=== PATIENT | male | born 1940 | race Two or more races ===

== ENCOUNTER 2018-06-12 11:45 | Emergency (ER) | payer MEDICARE, MEDICAID ==
[~2018-06-12] VITALS: Ht 160 cm; Wt 63.5 kg
[2018-06-12 16:10] VITALS: BP 106/70
== END 2018-06-12 16:20 | disposition home or self-care (01) ==
LOC: ER 11:45
DX: S60.450A Superficial foreign body of right index finger, initial encounter (principal); E78.5 Hyperlipidemia, unspecified; I10 Essential (primary) hypertension; W45.0XXA Nail entering through skin, initial encounter; Y93.89 Activity, other specified; Y99.8 Other external cause status; Y92.89 Other specified places as the place of occurrence of the external cause
CPT/HCPCS: 10120; 73130

== ENCOUNTER 2018-07-06 23:42 | Emergency (ER) | payer MEDICAID, MEDICARE ==
[~2018-07-06] VITALS: Ht 152.4 cm; Wt 68.0 kg
[2018-07-07 02:40] LABS: Basophils # (auto) 0 uL; Basophils % (auto) 0.7 % (0.0-2.0); Eosinophils # (auto) 0.2 uL; Eosinophils % (auto) 3.1 % (0.0-7.0); Hematocrit 40.1 % (41.0-53.0); Hemoglobin 13.1 g/dL (13.5-17.5); Lymphocytes # (auto) 1.1 uL; Lymphocytes % (auto) 19.4 % (10.0-50.0); Mean Corpuscular Hemoglobin 31.9 pg (28.0-32.0); Mean Corpuscular Hgb Conc. 32.7 g/dL (32.0-36.0); Mean Corpuscular Volume 97.5 fL (80.0-100.0); Monocytes # (auto) 0.5 uL; Monocytes % (auto) 8.4 % (0.0-12.0); Neutrophils # (auto) 3.7 uL; Neutrophils % (auto) 68.4 % (37.0-80.0); Nucleated Red Blood Cells % 0.2 %; Platelet Count (auto) 166 10^3/uL (140-450); Red Blood Cells 4.11 10^6/uL (4.5-5.90); Red Cell Distribution Width 14.9 % (11.8-14.3); White Blood Cell 5.4 10^3/uL (4.4-10.8)
[2018-07-07 02:55] LABS: Partial Thromboplastin Time 29.2 sec (23.78-33.04); Prothrombin Time 10.7 sec (9.27-12.13)
[2018-07-07 05:00] LABS: BUN/Creatinine Ratio 18.1; Calcium 8.2 mg/dL (8.5-10.1)
[2018-07-07] MEDS ORDERED: HYDROcodone-ACET 5/325MG TAB PO ONE (05:00)
[2018-07-07 07:47] VITALS: BP 154/76
== END 2018-07-07 07:59 | disposition home or self-care (01) ==
LOC: EDBD 23:42 → ER 23:52
DX: J32.9 Chronic sinusitis, unspecified (principal); E78.5 Hyperlipidemia, unspecified; I10 Essential (primary) hypertension
CPT/HCPCS: 36415; 70450; 80048; 83880; 85025; 85610; 85730

== ENCOUNTER 2019-04-17 19:31 | Emergency (ER) | payer MEDICARE, MEDICAID ==
[~2019-04-17] VITALS: Ht 157.5 cm; Wt 72.6 kg
[2019-04-17 21:21] LABS: Basophils # (auto) 0 uL; Basophils % (auto) 0.5 % (0.0-2.0); Eosinophils # (auto) 0.2 uL; Eosinophils % (auto) 3.6 % (0.0-7.0); Hematocrit 40.2 % (41.0-53.0); Hemoglobin 13.8 g/dL (13.5-17.5); Lymphocytes # (auto) 1.5 uL; Lymphocytes % (auto) 22.3 % (10.0-50.0); Mean Corpuscular Hgb Conc. 34.2 g/dL (32.0-36.0); Mean Corpuscular Volume 96.3 fL (80.0-100.0); Monocytes # (auto) 0.5 uL; Monocytes % (auto) 7.8 % (0.0-12.0); Neutrophils # (auto) 4.4 uL; Neutrophils % (auto) 65.8 % (37.0-80.0); Platelet Count (auto) 181 10^3/uL (140-450); Red Blood Cells 4.17 10^6/uL (4.5-5.90); Red Cell Distribution Width 14.1 % (11.8-14.3); White Blood Cell 6.7 10^3/uL (4.4-10.8)
[2019-04-17 21:34] LABS: INR 0.92 (0.9-1.15); Partial Thromboplastin Time 28.1 sec (23.64-32.05)
[2019-04-17 21:36] LABS: Alanine Aminotransferase 30 U/L (16-61); Albumin 3.7 g/dL (3.4-5.0); Anion Gap 8 (5-15); Aspartate Aminotransferase 14 U/L (15-37); Blood Urea Nitrogen 15 mg/dL (7-18); Calcium 8.8 mg/dL (8.5-10.1); Carbon Dioxide 26 mmol/L (21-32); Chloride 106 mmol/L (98-107); GFR African American 130 mL/min; GFR Non-African American 107 mL/min; Glucose 100 mg/dL (74-106); Potassium 4.1 mmol/L (3.5-5.1); Sodium 140 mmol/L (136-145)
[2019-04-17 21:41] LABS: Alkaline Phosphatase 75 U/L (45-117); Bilirubin, Total 0.4 mg/dL (0.2-1.0); Creatine Kinase IFCC 129 U/L (39-308); Total Protein 7.6 g/dL (6.4-8.2)
[2019-04-18] MEDS ORDERED: HYDROcodone-ACET 10/325MG TAB PO ONE (01:30)
[2019-04-18] MEDS ORDERED: LEVOFLOXACIN 250 MG TAB PO ONE (02:15)
[2019-04-18 04:25] VITALS: BP 165/86
== END 2019-04-18 05:18 | disposition home or self-care (01) ==
LOC: EDBD 19:31 → ER 19:31
DX: J01.90 Acute sinusitis, unspecified (principal); E78.5 Hyperlipidemia, unspecified; I10 Essential (primary) hypertension
CPT/HCPCS: 36415; 70450; 71045; 80053; 82550; 83880; 84484; 85025; 85610; 85730; 93005

== ENCOUNTER 2019-12-08 21:34 | Emergency (ER) | payer MEDICARE, MEDICAID | END 2019-12-08 22:03 | disposition left against medical advice (07) | LOC: ER 21:34 → EDBD 21:34 → ER 22:03 | DX: R69 Illness, unspecified (principal); Z53.21 Procedure and treatment not carried out due to patient leaving prior to being seen by health care provider ==

== ENCOUNTER 2021-10-16 20:33 | Inpatient (IN) | payer BC, MEDICAID ==
[~2021-10-16] VITALS: Ht 165.1 cm; Wt 65.6 kg
[2021-10-16 22:20] LABS: Basophils # (auto) 0 10 ^3/uL (0-0.2); Basophils % (auto) 0.1 % (0.0-2.0); Eosinophils # (auto) 0.1 10 ^3/uL (0-0.8); Eosinophils % (auto) 1.2 % (0.0-7.0); Hemoglobin 13.7 g/dL (13.5-17.5); Lymphocytes # (auto) 0.9 10 ^3/uL (0.4-5.4); Lymphocytes % (auto) 19.5 % (10.0-50.0); Mean Corpuscular Hemoglobin 31.5 pg (28.0-32.0); Mean Corpuscular Hgb Conc. 32.6 g/dL (32.0-36.0); Mean Corpuscular Volume 96.6 fL (80.0-100.0); Monocytes # (auto) 0.2 10 ^3/uL (0-1.3); Neutrophils # (auto) 3.5 10 ^3/uL (1.6-8.6); Neutrophils % (auto) 74.2 % (37.0-80.0); Nucleated Red Blood Cells % 0.1 %; Red Blood Cells 4.35 10^6/uL (4.5-5.90); White Blood Cell 4.7 10^3/uL (4.4-10.8)
[2021-10-16 22:35] LABS: Albumin 2.5 g/dL (3.4-5.0); Calcium 7.8 mg/dL (8.5-10.1); Potassium 4.2 mmol/L (3.5-5.1)
[2021-10-16 22:40] LABS: Bilirubin, Total 0.6 mg/dL (0.2-1.0); Total Protein 6.3 g/dL (6.4-8.2)
[2021-10-16] MEDS ORDERED: cefTRIAXone 1GM/50ML D5W 50 ML IV ONE (23:45)
[2021-10-16] MEDS ORDERED: AZITHROMYCIN 500MG/ 250ML 250 ML IV ONE (23:45)
[2021-10-17] MEDS ORDERED: ONDANSETRON HCL 4 MG/2 ML VIAL IV PRN (03:30)
[2021-10-17] MEDS ORDERED: ACETAMINOPHEN 500 MG TAB PO PRN (03:30)
[2021-10-17] MEDS ORDERED: ACETAMINOPHEN 325 MG TAB PO PRN (03:30)
[2021-10-17] MEDS ORDERED: DOCUSATE SOD 100 MG CAP PO PRN (03:30)
[2021-10-17] MEDS ORDERED: HYDROcodone-ACET 5/325MG TAB PO PRN (03:30)
[2021-10-17 04:09] VITALS: BP 124/82
[2021-10-17] MEDS ORDERED: MORPHINE SULFATE INJECTION 2 MG/ML SYRG IV PRN (05:30)
[2021-10-17] MEDS ORDERED: NITROGLYCERIN 0.4 MG SL TAB SL PRN (05:30)
[2021-10-17] MEDS: cefTRIAXone 1GM/50ML D5W 50 ML IV SCH (08:46)
[2021-10-17] MEDS ORDERED: FAMOTIDINE (10MG/ML) 2ML VL IV SCH (10:00)
[2021-10-17] MEDS: ALBUTEROL SULF HFA 90MCG INH 200DOSE IN PRN ×2 (10:01→22:41)
[2021-10-17] MEDS: BUDESONIDE (INHALATION) 180 MCG IH IN SCH ×2 (10:01→22:21)
[2021-10-17] MEDS: DexAMETHasone SOD PHOS 10MG/1ML VIAL INJ IV SCH (10:49)
[2021-10-17] MEDS: ZINC SULFATE 220mg CAP or TAB PO SCH (10:50)
[2021-10-17] MEDS: AZITHROMYCIN 500MG/ 250ML 250 ML IV SCH (10:50)
[2021-10-17] MEDS: ASCORBIC ACID 1,000 MG TAB PO SCH (10:50)
[2021-10-17] MEDS: MULTIPLE VITAMIN TAB PO SCH (10:50)
[2021-10-17] MEDS: ASPirin 81 mg TAB PO SCH (10:50)
[2021-10-17] MEDS: CHOLECALCIFEROL (VITD3) 2,000 UNIT CAP/TAB PO SCH (10:51)
[2021-10-17] MEDS: ENOXAPARIN SOD 40 MG/0.4 ML SYRINGE SC SCH (10:51)
[2021-10-17 17:00] VITALS: BP 152/86
[2021-10-17] MEDS: TAMSULOSIN HYDROCHLORIDE 0.4 MG CAP PO SCH (18:13)
[2021-10-17 22:00] VITALS: BP 131/87
[2021-10-18 03:33] VITALS: BP 133/68
[2021-10-18] MEDS ORDERED: HYDROcodone-ACET 5/325MG TAB PO PRN (03:45)
[2021-10-18] MEDS: BUDESONIDE (INHALATION) 180 MCG IH IN SCH ×2 (06:54→20:40)
[2021-10-18] MEDS: ALBUTEROL SULF HFA 90MCG INH 200DOSE IN PRN ×2 (06:54→20:55)
[2021-10-18 07:44] LABS: Basophils # (auto) 0 10 ^3/uL (0-0.2); Basophils % (auto) 0.1 % (0.0-2.0); Eosinophils # (auto) 0 10 ^3/uL (0-0.8); Eosinophils % (auto) 0.1 % (0.0-7.0); Hematocrit 39.8 % (41.0-53.0); Hemoglobin 13.7 g/dL (13.5-17.5); Lymphocytes # (auto) 0.8 10 ^3/uL (0.4-5.4); Lymphocytes % (auto) 12.2 % (10.0-50.0); Mean Corpuscular Hgb Conc. 34.6 g/dL (32.0-36.0); Mean Corpuscular Volume 95.5 fL (80.0-100.0); Monocytes # (auto) 0.2 10 ^3/uL (0-1.3); Monocytes % (auto) 3.5 % (0.0-12.0); Neutrophils # (auto) 5.6 10 ^3/uL (1.6-8.6); Neutrophils % (auto) 84.1 % (37.0-80.0); Nucleated Red Blood Cells % 0.1 %; Red Blood Cells 4.17 10^6/uL (4.5-5.90); White Blood Cell 6.6 10^3/uL (4.4-10.8)
[2021-10-18 08:08] LABS: Albumin 2.7 g/dL (3.4-5.0); Calcium 8.6 mg/dL (8.5-10.1); Potassium 4.3 mmol/L (3.5-5.1)
[2021-10-18 08:13] LABS: BUN/Creatinine Ratio 28.6; Bilirubin, Total 0.4 mg/dL (0.2-1.0); Total Protein 6.9 g/dL (6.4-8.2)
[2021-10-18] MEDS: ASPirin 81 mg TAB PO SCH (09:26)
[2021-10-18] MEDS: cefTRIAXone 1GM/50ML D5W 50 ML IV SCH (09:26)
[2021-10-18] MEDS: AZITHROMYCIN 500MG/ 250ML 250 ML IV SCH (09:26)
[2021-10-18] MEDS: DexAMETHasone SOD PHOS 10MG/1ML VIAL INJ IV SCH (09:26)
[2021-10-18] MEDS: ZINC SULFATE 220mg CAP or TAB PO SCH (09:27)
[2021-10-18] MEDS: ASCORBIC ACID 1,000 MG TAB PO SCH (09:27)
[2021-10-18] MEDS: ENOXAPARIN SOD 40 MG/0.4 ML SYRINGE SC SCH (09:27)
[2021-10-18] MEDS: MULTIPLE VITAMIN TAB PO SCH (09:27)
[2021-10-18] MEDS: CHOLECALCIFEROL (VITD3) 2,000 UNIT CAP/TAB PO SCH (09:27)
[2021-10-18] MEDS ORDERED: REMDESIVIR PER PHARMACY 0 ML IV SCH (11:00)
[2021-10-18] MEDS ORDERED: TAMS0.4C36 PO (12:08)
[2021-10-18] MEDS ORDERED: ATOR20TA50 PO (12:08)
[2021-10-18] MEDS ORDERED: FIN5T PO (12:08)
[2021-10-18] MEDS ORDERED: BENA-27 PO (12:08)
[2021-10-18] MEDS: LACTULOSE 20Gm/30ML SOLN PO SCH ×3 (12:09→23:59)
[2021-10-18 13:00] VITALS: BP 134/87
[2021-10-18] MEDS ORDERED: REMDESIVIR 200 MG in NS 210ml LOADING DOSE ADULT IV ONE (15:00)
[2021-10-18 17:00] VITALS: BP 134/76
[2021-10-18] MEDS: TAMSULOSIN HYDROCHLORIDE 0.4 MG CAP PO SCH (17:37)
[2021-10-18 22:00] VITALS: BP 145/76
[2021-10-19 05:00] VITALS: BP 143/83
[2021-10-19] MEDS: LACTULOSE 20Gm/30ML SOLN PO SCH ×3 (05:55→17:39)
[2021-10-19] MEDS: ALBUTEROL SULF HFA 90MCG INH 200DOSE IN PRN ×2 (06:15→22:00)
[2021-10-19] MEDS: BUDESONIDE (INHALATION) 180 MCG IH IN SCH ×2 (06:16→22:00)
[2021-10-19 07:12] LABS: Potassium 4.6 mmol/L (3.5-5.1)
[2021-10-19 07:19] LABS: Albumin 2.4 g/dL (3.4-5.0); BUN/Creatinine Ratio 32.8; Bilirubin, Total 0.3 mg/dL (0.2-1.0); Calcium 8.2 mg/dL (8.5-10.1)
[2021-10-19 08:16] VITALS: BP 120/67
[2021-10-19] MEDS: AZITHROMYCIN 500MG/ 250ML 250 ML IV SCH (08:25)
[2021-10-19] MEDS: cefTRIAXone 1GM/50ML D5W 50 ML IV SCH (08:25)
[2021-10-19] MEDS: DexAMETHasone SOD PHOS 10MG/1ML VIAL INJ IV SCH (08:25)
[2021-10-19] MEDS: ASCORBIC ACID 1,000 MG TAB PO SCH (08:26)
[2021-10-19] MEDS: MULTIPLE VITAMIN TAB PO SCH (08:26)
[2021-10-19] MEDS: CHOLECALCIFEROL (VITD3) 2,000 UNIT CAP/TAB PO SCH (08:26)
[2021-10-19] MEDS: ZINC SULFATE 220mg CAP or TAB PO SCH (08:26)
[2021-10-19] MEDS: ASPirin 81 mg TAB PO SCH (08:26)
[2021-10-19] MEDS: ENOXAPARIN SOD 40 MG/0.4 ML SYRINGE SC SCH (08:27)
[2021-10-19 12:00] VITALS: BP 149/79
[2021-10-19] MEDS ORDERED: REMDESIVIR 100mg 100 MG in SODIUM CHL 0.9% 230 ML IV SCH (15:00)
[2021-10-19 16:00] VITALS: BP 134/73
[2021-10-19 18:10] VITALS: BP 134/73
[2021-10-19] MEDS: TAMSULOSIN HYDROCHLORIDE 0.4 MG CAP PO SCH (18:12)
[2021-10-19 22:00] VITALS: BP 152/86
[2021-10-19] MEDS ORDERED: ATORVASTATIN 20 MG TAB PO SCH (22:00)
[2021-10-20] MEDS: LACTULOSE 20Gm/30ML SOLN PO SCH
[2021-10-20] MEDS ORDERED: FINASTERIDE 5 MG TAB PO SCH (10:00)
[2021-10-20] MEDS ORDERED: BENAZEPRIL HCL 10 MG TAB PO SCH (10:00)
== END 2021-10-20 00:45 | disposition left against medical advice (07) | DRG 177 ==
LOC: ER 20:33 → EDBD 20:33 → OVERFLOW 10-17 05:28 → WEST WING 10-17 16:53
PROVIDERS: ADMIT Nurse Practitioner Family; ATTEND Internal Medicine
PROC: XW033E5 Introduction of Remdesivir Anti-infective into Peripheral Vein, Percutaneous Approach, New Technology Group 5 (ICD-10-PCS; principal; 2021-10-18)
DX: U07.1 COVID-19 (principal); J12.82 Pneumonia due to coronavirus disease 2019; J96.01 Acute respiratory failure with hypoxia; E88.09 Other disorders of plasma-protein metabolism, not elsewhere classified; E78.5 Hyperlipidemia, unspecified; I10 Essential (primary) hypertension; E11.9 Type 2 diabetes mellitus without complications; Z53.29 Procedure and treatment not carried out because of patient's decision for other reasons
CPT/HCPCS: 36415; 71045; 80053; 83036; 83735; 85025; 85379; 87426; 94640; 96365; 96368; 96375; G0378; J0696; J1100; J3490

== ENCOUNTER 2021-10-20 11:10 | Inpatient (IN) | payer BC, MEDICAID ==
[~2021-10-20] VITALS: Ht 165.1 cm; Wt 77.1 kg
[~2021-10-20 11:10] MED LIST: ATOR20TA50 PO; BENA-27 PO; FIN5T PO; TAMS0.4C36 PO
[2021-10-20 11:30] VITALS: BP 137/74
[2021-10-20] MEDS ORDERED: methylPREDNISolone SOD SUCC 125 MG/2 ML VL IV ONE (11:45)
[2021-10-20 12:30] LABS: Basophils # (auto) 0 10 ^3/uL (0-0.2); Eosinophils # (auto) 0 10 ^3/uL (0-0.8); Eosinophils % (auto) 0.2 % (0.0-7.0); Hematocrit 38.6 % (41.0-53.0); Hemoglobin 12.8 g/dL (13.5-17.5); Lymphocytes # (auto) 0.8 10 ^3/uL (0.4-5.4); Lymphocytes % (auto) 11.1 % (10.0-50.0); Mean Corpuscular Hemoglobin 31.5 pg (28.0-32.0); Mean Corpuscular Hgb Conc. 33.2 g/dL (32.0-36.0); Mean Corpuscular Volume 94.9 fL (80.0-100.0); Monocytes # (auto) 0.3 10 ^3/uL (0-1.3); Monocytes % (auto) 4.4 % (0.0-12.0); Neutrophils # (auto) 6.4 10 ^3/uL (1.6-8.6); Neutrophils % (auto) 84.3 % (37.0-80.0); Nucleated Red Blood Cells % 0.1 %; Red Blood Cells 4.07 10^6/uL (4.5-5.90); Red Cell Distribution Width 13.8 % (11.8-14.3); White Blood Cell 7.6 10^3/uL (4.4-10.8)
[2021-10-20 12:46] LABS: Albumin 2.9 g/dL (3.4-5.0); Calcium 8.6 mg/dL (8.5-10.1); Potassium 3.6 mmol/L (3.5-5.1)
[2021-10-20 12:55] LABS: BUN/Creatinine Ratio 30.8; Bilirubin, Total 0.6 mg/dL (0.2-1.0); CRP High Sensitivity 2.75 mg/dL (< 0.3); Total Protein 7.2 g/dL (6.4-8.2)
[2021-10-20] MEDS ORDERED: ASCORBIC ACID 500 MG TAB PO ONE (14:00)
[2021-10-20] MEDS ORDERED: ZINC SULFATE 220mg CAP or TAB PO ONE (14:00)
[2021-10-20] MEDS ORDERED: CHOLECALCIFEROL (VITD3) 2,000 UNIT CAP/TAB PO ONE (14:00)
[2021-10-20] MEDS ORDERED: AZITHROMYCIN 500MG/ 250ML 250 ML IV ONE (14:00)
[2021-10-20] MEDS ORDERED: ACETAMINOPHEN 325 MG TAB PO PRN (18:15)
[2021-10-20] MEDS ORDERED: HYDROcodone-ACET 5/325MG TAB PO PRN (18:15)
[2021-10-20] MEDS ORDERED: NITROGLYCERIN 0.4 MG SL TAB SL PRN (18:15)
[2021-10-20] MEDS ORDERED: MORPHINE SULFATE INJECTION 2 MG/ML SYRG IV PRN (18:15)
[2021-10-20] MEDS ORDERED: PIPERACILLIN-TAZOB 3.375GM 100 ML IV SCH (22:00)
[2021-10-21] MEDS ORDERED: ENOXAPARIN SOD 40 MG/0.4 ML SYRINGE SC SCH (10:00)
== END 2021-10-20 21:00 | disposition left against medical advice (07) | DRG 177 ==
LOC: ER 11:10 → EDBD 11:10 → TELE 18:07
PROVIDERS: ADMIT Internal Medicine; ATTEND Internal Medicine
DX: U07.1 COVID-19 (principal); J96.00 Acute respiratory failure, unspecified whether with hypoxia or hypercapnia; I10 Essential (primary) hypertension; Z53.29 Procedure and treatment not carried out because of patient's decision for other reasons; Z85.46 Personal history of malignant neoplasm of prostate; Z87.891 Personal history of nicotine dependence; E78.5 Hyperlipidemia, unspecified
CPT/HCPCS: 36415; 71045; 80053; 82728; 85025; 85379; 86141; 87426; G0378

== ENCOUNTER 2023-05-23 08:17 | Emergency (ER) | payer BC, MEDICAID ==
[~2023-05-23] VITALS: Ht 160 cm; Wt 80.0 kg
[2023-05-23] MEDS ORDERED: SODIUM CHLORIDE 0.9% 1,000 ML IV ONE (08:30)
[2023-05-23] MEDS ORDERED: FLEET ENEMA(ADULT) 135 ML PR ONE (08:30)
[2023-05-23] MEDS ORDERED: DOCUSATE SOD 100 MG CAP PO ONE (08:30)
[2023-05-23] MEDS ORDERED: LABETALOL HCL 5 MG/ML 4ML SYRINGE IV ONE (08:30)
[2023-05-23 08:42] LABS: Basophils # (auto) 0 10 ^3/uL (0-0.2); Basophils % (auto) 0.5 % (0.0-2.0); Eosinophils # (auto) 0.2 10 ^3/uL (0-0.8); Eosinophils % (auto) 2.5 % (0.0-7.0); Hematocrit 43.2 % (41.0-53.0); Hemoglobin 14.2 g/dL (13.5-17.5); Lymphocytes # (auto) 2.3 10 ^3/uL (0.4-5.4); Lymphocytes % (auto) 36.7 % (10.0-50.0); Mean Corpuscular Hemoglobin 32.3 pg (28.0-32.0); Mean Corpuscular Hgb Conc. 32.9 g/dL (32.0-36.0); Mean Corpuscular Volume 98.1 fL (80.0-100.0); Monocytes # (auto) 0.3 10 ^3/uL (0-1.3); Monocytes % (auto) 5.4 % (0.0-12.0); Neutrophils # (auto) 3.4 10 ^3/uL (1.6-8.6); Neutrophils % (auto) 54.9 % (37.0-80.0); Nucleated Red Blood Cells % 0.1 %; Red Cell Distribution Width 14.4 % (11.8-14.3); White Blood Cell 6.1 10^3/uL (4.4-10.8)
[2023-05-23 09:07] LABS: Albumin 4.2 g/dL (3.4-5.0); Calcium 9.4 mg/dL (8.5-10.1); Potassium 3.7 mmol/L (3.5-5.1)
[2023-05-23 09:10] LABS: BUN/Creatinine Ratio 22.9 (10.0-20.0); Bilirubin, Total 0.4 mg/dL (0.2-1.0); Total Protein 8.2 g/dL (6.4-8.2)
[2023-05-23 09:54] LABS: Urine Bacteria NONE SEEN /hpf (None Seen); Urine Blood TRACE /uL (Negative); Urine Specific Gravity 1.013 (1.001-1.035); Urine WBC <1 /hpf (0 - 3)
[2023-05-23 10:51] VITALS: BP 134/68
== END 2023-05-23 10:53 | disposition home or self-care (01) ==
LOC: EDBD 08:17 → ER 08:17
DX: R10.84 Generalized abdominal pain (principal); R33.9 Retention of urine, unspecified; E78.5 Hyperlipidemia, unspecified; I10 Essential (primary) hypertension; Z87.891 Personal history of nicotine dependence
CPT/HCPCS: 36415; 51702; 74176; 80053; 81001; 84484; 85025; 87040; 93005

== ENCOUNTER 2023-07-10 16:15 | Emergency (ER) | payer BC, MEDICAID ==
[~2023-07-10] VITALS: Ht 165.1 cm; Wt 60.0 kg
[2023-07-10 17:42] VITALS: TEMP 98.3
[2023-07-10 17:44] VITALS: PULSE 74; RESP 17; O2SAT 96
[2023-07-10 19:22] LABS: Urine Bacteria NONE SEEN /hpf (None Seen); Urine Blood 1+ /uL (Negative); Urine Clarity CLOUDY (Clear); Urine Color Yellow (Yellow); Urine Mucus FEW (None Seen); Urine Protein, UAD 3+ (Negative); Urine Urobilinogen Normal (Negative); Urine WBC 33 /hpf (0 - 3)
[2023-07-10 19:24] LABS: Urine Specific Gravity > 1.035 (1.001-1.035)
[2023-07-10 19:34] LABS: Basophils # (auto) 0 10 ^3/uL (0-0.2); Basophils % (auto) 0.5 % (0.0-2.0); Eosinophils # (auto) 0.1 10 ^3/uL (0-0.8); Hematocrit 41.9 % (41.0-53.0); Hemoglobin 14.1 g/dL (13.5-17.5); Lymphocytes # (auto) 1.7 10 ^3/uL (0.4-5.4); Lymphocytes % (auto) 23.5 % (10.0-50.0); Mean Corpuscular Hemoglobin 32.7 pg (28.0-32.0); Mean Corpuscular Hgb Conc. 33.7 g/dL (32.0-36.0); Mean Corpuscular Volume 97.1 fL (80.0-100.0); Monocytes # (auto) 0.4 10 ^3/uL (0-1.3); Monocytes % (auto) 5.5 % (0.0-12.0); Neutrophils % (auto) 69.5 % (37.0-80.0); Red Blood Cells 4.32 10^6/uL (4.5-5.90); White Blood Cell 7.2 10^3/uL (4.4-10.8)
[2023-07-10 19:45] VITALS: PULSE 82; RESP 14; O2SAT 94
[2023-07-10 19:54] LABS: Alanine Aminotransferase 21 U/L (7-40); Albumin 4.7 g/dL (3.2-4.8); Alkaline Phosphatase 87 U/L (46-116); Anion Gap 4.5 (5-15); Aspartate Aminotransferase 15 U/L (13-40); BUN/Creatinine Ratio 15.7 (10.0-20.0); Bilirubin, Total 0.6 mg/dL (0.2-1.0); Blood Urea Nitrogen 14 mg/dL (9-23); Calcium 9.9 mg/dL (8.5-10.1); Carbon Dioxide 31.5 mmol/L (20-30); Chloride 104 mmol/L (98-107); Glucose 102 mg/dL (74-106); Potassium 4.3 mmol/L (3.5-5.1); Sodium 140 mmol/L (136-145); Total Protein 7.8 g/dL (5.7-8.2)
[2023-07-10] MEDS ORDERED: MAGNESIUM CITRATE SOLUTION 300 ML BTL PO ONE (23:00)
[2023-07-10] MEDS ORDERED: cefTRIAXone 1GM/50ML D5W 50 ML IV ONE (23:00)
[2023-07-10] MEDS ORDERED: POLYETHYLENE GLYCOL 17 GM PWDR PO ONE (23:45)
[2023-07-11] VITALS: BP 137/103; PULSE 91; RESP 16; O2SAT 96
[2023-07-11] MEDS ORDERED: CIPR-173 PO (00:14)
[2023-07-11] MEDS ORDERED: POLY335015 PO (00:41)
== END 2023-07-11 00:53 | disposition home or self-care (01) ==
LOC: ER 16:15 → EDBD 16:15 → ER 07-11 00:49
DX: K59.00 Constipation, unspecified (principal); N39.0 Urinary tract infection, site not specified; E78.5 Hyperlipidemia, unspecified; I10 Essential (primary) hypertension; Z87.891 Personal history of nicotine dependence
CPT/HCPCS: 36415; 71045; 74176; 80053; 81001; 85025; 93005; 96365; 99285; J0696

== ENCOUNTER 2023-10-26 09:39 | Emergency (ER) | payer BC, MEDICAID ==
[~2023-10-26] VITALS: Ht 160 cm; Wt 79.5 kg
[~2023-10-26 09:39] MED LIST changes: +CIPR-173 PO; +POLY335015 PO
[2023-10-26 10:52] LABS: Basophils # (auto) 0 10 ^3/uL (0-0.2); Basophils % (auto) 0.3 % (0.0-2.0); Eosinophils # (auto) 0.1 10 ^3/uL (0-0.8); Eosinophils % (auto) 1.6 % (0.0-7.0); Hematocrit 38.3 % (41.0-53.0); Hemoglobin 12.8 g/dL (13.5-17.5); Lymphocytes # (auto) 1.4 10 ^3/uL (0.4-5.4); Lymphocytes % (auto) 21.9 % (10.0-50.0); Mean Corpuscular Hemoglobin 32.7 pg (28.0-32.0); Mean Corpuscular Hgb Conc. 33.4 g/dL (32.0-36.0); Mean Corpuscular Volume 97.7 fL (80.0-100.0); Monocytes # (auto) 0.7 10 ^3/uL (0-1.3); Monocytes % (auto) 10.2 % (0.0-12.0); Neutrophils # (auto) 4.4 10 ^3/uL (1.6-8.6); Red Blood Cells 3.92 10^6/uL (4.5-5.90); Red Cell Distribution Width 13.9 % (11.8-14.3); White Blood Cell 6.6 10^3/uL (4.4-10.8)
[2023-10-26 11:06] LABS: Alanine Aminotransferase 22 U/L (7-40); Albumin 4.2 g/dL (3.2-4.8); Alkaline Phosphatase 79 U/L (46-116); Anion Gap 4 (5-15); Aspartate Aminotransferase 15 U/L (13-40); Blood Urea Nitrogen 20 mg/dL (9-23); Calcium 8.7 mg/dL (8.7-10.4); Carbon Dioxide 30 mmol/L (20-30); Chloride 104 mmol/L (98-107); Glucose 97 mg/dL (74-106); Magnesium 2.3 mg/dL (1.6-2.6); Potassium 4.5 mmol/L (3.5-5.1); Sodium 138 mmol/L (136-145)
[2023-10-26 11:07] LABS: Bilirubin, Total 0.3 mg/dL (0.2-1.0); Total Protein 6.5 g/dL (5.7-8.2)
[2023-10-26 13:30] LABS: Erythrocyte Sedimentation Rate 66 mm/hr (0-20)
[2023-10-26 14:00] VITALS: BP 152/76; PULSE 60; RESP 16; TEMP 98.6; O2SAT 98
[2023-10-26] MEDS ORDERED: PRED20TA2 PO (14:04)
[2023-10-26] MEDS ORDERED: predniSONE 20 MG TAB PO ONE (14:15)
== END 2023-10-26 14:08 | disposition home or self-care (01) ==
LOC: ER 09:39 → EDBD 09:39 → ER 14:08
DX: R51.9 Headache, unspecified (principal); M31.6 Other giant cell arteritis; I10 Essential (primary) hypertension; E78.5 Hyperlipidemia, unspecified; F17.210 Nicotine dependence, cigarettes, uncomplicated
CPT/HCPCS: 36415; 70450; 80053; 82962; 83735; 84484; 85025; 85652; 93005; 99284; J7512

== ENCOUNTER 2024-07-29 05:36 | Emergency (ER) | payer BC, MEDICAID ==
[~2024-07-29] VITALS: Ht 160 cm; Wt 59.0 kg
[~2024-07-29 05:36] MED LIST changes: -CIPR-173 PO; +NAP500T PO; -TAMS0.4C36 PO; +TAMS0.4C39 PO
[2024-07-29 05:47] VITALS: BP 177/98; PULSE 85; RESP 18; O2SAT 96
[2024-07-29] MEDS ORDERED: ACET-1080 PO (10:28)
[2024-07-29] MEDS ORDERED: CLIN1CAP70 PO (10:28)
== END 2024-07-29 07:25 | disposition left against medical advice (07) ==
LOC: ER 05:36 → EDBD 05:36 → ER 07:25
DX: K08.89 Other specified disorders of teeth and supporting structures (principal); R04.2 Hemoptysis; Z53.21 Procedure and treatment not carried out due to patient leaving prior to being seen by health care provider

== ENCOUNTER 2024-07-29 08:07 | Emergency (ER) | payer BC, MEDICAID ==
[~2024-07-29] VITALS: Ht 167.6 cm; Wt 60.0 kg
[2024-07-29 10:10] VITALS: BP 136/76; PULSE 60; RESP 16; TEMP 97.6; O2SAT 98
[2024-07-29] MEDS: cefTRIAXone SOD 1,000 MG VL IM ONE (10:24)
[2024-07-29] MEDS: ACETAMINOPHEN 500 MG TAB PO ONE (10:24)
[2024-07-29] MEDS ORDERED: ACET-1080 PO (10:28)
[2024-07-29] MEDS ORDERED: CLIN1CAP70 PO (10:28)
== END 2024-07-29 10:37 | disposition home or self-care (01) ==
LOC: ER 08:07
DX: K04.7 Periapical abscess without sinus (principal); R51.9 Headache, unspecified; I10 Essential (primary) hypertension; E78.5 Hyperlipidemia, unspecified; F17.210 Nicotine dependence, cigarettes, uncomplicated; Z79.899 Other long term (current) drug therapy
CPT/HCPCS: 70450; 96372; 99285; J0696

== ENCOUNTER 2024-11-01 15:18 | Inpatient (IN) | payer BC, MEDICAID ==
[~2024-11-01] VITALS: Ht 160 cm; Wt 64.0 kg
[~2024-11-01 15:18] MED LIST changes: +ACET-1080 PO; +CALA1SUS2 EX; +CETI-83 OR; +CLIN1CAP70 PO; +HYDR2.5L4 TOP
--- NOTE | 2024-11-01 16:18 | ED.PDOC ---
History of Present Illness(SKN HPI Comments A 84 YEAR OLD FEMALE PRESENTS TO THE ED WITH COMPLAINT OF RASH. PATIENT STATES HE HAS HAD A RASH ON HIS BILATERAL ARMS, EYELIDS, AND NECK FOR THE PAST 2 MONTHS WITH WORSENING SYMPTOMS OVER THE LAST 2 WEEKS. PATIENT REPORTS HE NOW HAS INCREASED REDNESS, ITCHING, AND MILD DRAINAGE TO THE AFFECTED AREAS. PATIENT IS CONCERNED HE NOW HAS AN INFECTION. PATIENT DENIES FEVER, CHILLS, SHORTNESS OF BREATH, CHEST PAIN, ABDOMINAL PAIN, NAUSEA, VOMITING, HEADACHE, OR OTHER COMPLAINTS. NO OTHER SYMPTOMS OR MODIFYING FACTORS AT THIS TIME. PATIENT IS ALERT, ORIENTED X 4, AND HAS STEADY GAIT. Chief Complaint: Rash Time Seen by MD: 15:45 Primary Care Provider: DR DONATO History of Present Illness: Nurses Notes, Medications, Allergies Allergies: Coded Allergies: NO KNOWN ALLERGIES (Unverified , 06/12/18) Home Meds Active Scripts Cetirizine Hcl (EQ ALLERGY RELIEF) 10 Mg Tab, 10 MG OR DAILYP PRN for 10 Days, #10 TAB 0 Refills Prov:YADIEL HOLGUIN NP 08/14/24 Calamine-Zinc Oxide (Calamine 8-8 %) 1 Radha Radha, 1 APPLIC EX QID for 14 Days, #1 BOTTLE 0 Refills Prov:YADIEL HOLGUIN NP 08/14/24 Hydrocortisone (Topical) (Hydrocortisone) 2.5 % Lot, 1 APPLIC TOP BID for 7 Days, #60 ML 1 Refill Prov:YADIEL HOLGUIN NP 08/14/24 Acetaminophen (Tylenol 8 Hour Arthritis) 650 Mg Tab, 650 MG PO TID, #30 TAB Prov:WARD HINTON 07/29/24 Clindamycin Hcl (Clindamycin Hcl) 300 Mg Cap, 1 CAP PO TID, #30 CAP Prov:WARD HINTON 07/29/24 Polyethylene Glycol 3350 (Miralax) 17 Gm Pow, 17 GM PO TID for 10 Days, #30 POW Prov:JERO MATT DO 07/11/23 Reported Medications Naproxen (NAPROSYN TABLET) 500 Mg Tb, 1 TAB PO BID 02/15/24 Benazepril & Hydrochlorothiazi (Benazepril Hydrochloride/ 20-12.5 mg) 1 Tab Tab, 1 TAB PO DAILYPRN 10/18/21 Atorvastatin Calcium (ATORVASTATIN CALCIUM) 20 Mg Tab, 1 TAB PO DAILYPRN 10/18/21 Finasteride (Finasteride) 5 Mg Tab, 1 TAB PO DAILYPRN 10/18/21 Tamsulosin Hcl (Tamsulosin Hcl) 0.4 Mg Cap, 1 CAP PO DAILYPRN 10/18/21 Information Source: Patient Mode of Arrival: Ambulatory Severity: Moderate Timing: Months Duration: Since onset Prehospital treatment: None Location: Arm, Chest, Eyes (EYELIDS), Neck Mechanism: Spontaneous Onset Developed: Pruritus, Rash Occurence: Indoors Object: None Condition of Object: None Retained Foreign Body: No Wound Type: None Immunization Status of Animal: NA Tetanus: Unknown History of: None Associated Signs and Symptoms: Redness, Swelling, Pus, Pain Past Medical History PAST MEDICAL HISTORY: High Lipids, HTN, UTI'S Surgical History: Denies all surgeries Family History Family History: Reviewed,noncontributory to illness Social History Smoker: Cigar Alcohol: Occasionally Drugs: Denies Drug Use Lives In: Home Constitutional: denies: chills, diaphoresis, fatigue, fever, malaise, sweats, weakness, others EENTM: denies: blurred vision, double vision, ear bleeding, ear discharge, ear drainage, ear pain, ear ringing, eye pain, eye redness, hearing loss, mouth pain, mouth swelling, nasal discharge, nose bleeding, nose congestion, nose pain, photophobia, tearing, throat pain, throat swelling, voice changes, others Respiratory: denies: cough, hemoptysis, orthopnea, SOB at rest, shortness of breath, SOB with excertion, stridor, wheezing, others Cardiovascular: denies: chest pain, dizzy spells, diaphoresis, Dyspnea on exertion, edema, irregular heart beat, left arm pain, lightheadedness, palpitations, PND, syncope, others Gastrointestinal: denies: abdomen distended, abdominal pain, blood streaked bowels, constipated, diarrhea, dysphagia, difficulty swallowing, hematemesis, melena, nausea, poor appetite, poor fluid intake, rectal bleeding, rectal pain, vomiting, others Genitourinary: denies: burning, dysuria, flank pain, frequency, hematuria, incontinence, penile discharge, penile sore, pain, testicle pain, testicle swelling, urgency, others Neurological: denies: dizziness, fainting, headache, left sided numbness, left sided weakness, numbness, paresthesia, pre-existing deficit, right sided numbness, right sided weakness, seizure, speech problems, tingling, tremors, weakness, others Musculoskeletal: denies: back pain, gout, joint pain, joint swelling, muscle pain, muscle stiffness, neck pain, others Integumetry: reports: lesions, rash, wounds, others (ITCHING, MILD DRAINAGE); denies: bruises, change in color, change in hair/nails, dryness, laceration, lumps Allergic/Immunocompromised: reports: Itching; denies: Difficulty Healing, Frequent Infections, Hives, others Hematologic/Lymphatic: denies: anemia, blood clots, easy bleeding, easy bruising, swollen glands, others Endocrine: denies: excessive hunger, excessive sweating, excessive thirst, excessive urination, flushing, intolerance to cold, intolerance to heat, unexplained weight gain, unexplained weight loss, others Psychiatric: denies: anxiety, bipolar disorder, depression, hopeless, panic disorder, schizophrenia, sleepless, suicidal, others All Other Systems: Reviewed and Negative Physical Exam General Appearance: No Apparent Distress, Normal HEENT: Eye Lid (L) (ECZEMATOUS SKIN RASH ON LEFT UPPER AND LOWER EYELIDS. . ), Eye Lid (R) (ECZEMATOUS SKIN RASH WITH REDNESS AND MILD SWELLING ON RIGHT UPPER AND LOWER EYELID. ), Normal ENT Inspection, PERRL/EOMI, Pharynx Normal, TMs Normal Neck: Full Range of Motion, Non-Tender, Normal, Normal Inspection Respiratory: Chest Non-Tender, Lungs Clear, No Accessory Muscle Use, No Respiratory Distress, Normal Breath Sounds Cardiovascular: No Edema, No JVD, No Murmur, No Gallop, Normal Peripheral Pulses, Regular Rate/Rhythm Breast Exam: Deferred Gastrointestinal: No Organomegaly, Non Tender, No Pulsatile Mass, Normal Bowel Sounds, Soft Genitalia: Deferred Pelvic: Deferred Rectal: Deferred Extremities: No calf tenderness, Normal capillary refill, Normal inspection, Normal range of motion, Non-tender, No pedal edema Musculoskeletal : Apperance: Normal Neurologic: Alert, manager of pharmacy II-XII nml as Tested, No Motor Deficits, Normal Affect, Normal Mood, No Sensory Deficits Cerebellar Function: Normal Reflexes: Normal Skin: Dry, Rash (ECZEMATOUS SKIN RASH ON BILATERAL LATERAL NECK, EXTERNAL EARS AND AROUND EYELIDS, NO OPEN WOUND AND PUS DRAINAGE. ), Warm, Wounds (ECZEMATOUS SKIN RASH WITH LOCALIZED REDNESS, SWELLING AND MILD YELLOW DRAINAGE ON BILATERAL WRISTS TO FOREARMS. ) Peripheral Pulses: 2+ carotid (R), 2+ carotid (L), 2+ Radial (R), 2+ Radial (L) Lymphatic: No Adenopathy Was a procedure done? Was a procedure done?: No Differential Diagnosis (INTG) Differential Diagnosis: Cellulitis, N/A Differential Diagnosis: Atopic dermatitis, Cellulitis, Contact Dermatitis, Erysipelas, Hidradenitis suppurativa, Impetigo, Intertrigo, Scabies, Tinea, Urticaria Differential Diagnosis: N/A Abscess: N/A Differential Diagnosis: N/A X-Ray, Labs, Meds, VS Vital Signs Date Time Temp Pulse Resp B/P (MAP) Pulse Ox O2 Delivery O2 Flow Rate FiO2 11/01/24 15:59 85 18 96 Room Air 11/01/24 15:59 98.2 85 18 153/84 (107) 96 98.2 11/01/24 15:49 98.2 85 18 153/84 (107) 96 Lab Test 11/01/24 16:37 Range/Units White Blood Count 5.0 4.4-10.8 10^3/uL Red Blood Count 4.24 L 4.5-5.90 10^6/uL Hemoglobin 14.0 13.5-17.5 g/dL Hematocrit 42.0 41.0-53.0 % Mean Corpuscular Volume 99.1 80.0-100.0 fL Mean Corpuscular Hemoglobin 33.1 H 28.0-32.0 pg Mean Corpuscular Hemoglobin Concent 33.4 32.0-36.0 g/dL Red Cell Distribution Width 13.5 11.8-14.3 % Platelet Count 199 140-450 10^3/uL Mean Platelet Volume 7.9 6.9-10.8 fL Neutrophils (%) (Auto) 71.0 37.0-80.0 % Lymphocytes (%) (Auto) 20.0 10.0-50.0 % Monocytes (%) (Auto) 5.7 0.0-12.0 % Eosinophils (%) (Auto) 2.7 0.0-7.0 % Basophils (%) (Auto) 0.6 0.0-2.0 % Neutrophils # (Auto) 3.5 1.6-8.6 10 ^3/uL Lymphocytes # (Auto) 1.0 0.4-5.4 10 ^3/uL Monocytes # (Auto) 0.3 0-1.3 10 ^3/uL Eosinophils # (Auto) 0.1 0-0.8 10 ^3/uL Basophils # (Auto) 0 0-0.2 10 ^3/uL Nucleated Red Blood Cells 0.3 % Sodium Level 141 136-145 mmol/L Potassium Level 4.3 3.5-5.1 mmol/L Chloride Level 106 98-107 mmol/L Carbon Dioxide Level 29 20-31 mmol/L Anion Gap 6 5-15 Blood Urea Nitrogen 20 9-23 mg/dL Creatinine 1.13 0.700-1.30 mg/dL Glomerular Filtration Rate Calc 64 >90 mL/min BUN/Creatinine Ratio 17.7 10.0-20.0 Serum Glucose 97 74-106 mg/dL Lactic Acid Level 1.6 0.4-2.0 mmol/L Calcium Level 10.0 8.7-10.4 mg/dL Current Medications Medications (Trade) Dose Ordered Sig/Pamela Route Start Time Stop Time Status Last Admin Sodium Chloride 1,000 ml @ 125 mls/hr Q8H ONCE IV 11/01/24 16:30 11/02/24 00:29 11/01/24 16:48 X-Ray, Labs, Meds, VS Comment EXTERNAL MEDICAL RECORDS REVIEWED: [NONE] INDEPENDENT HISTORIANS: [NONE] SOCIAL DETERMINANTS OF HEALTH: [NONE] LABS ORDERED: CBC, BMP, UA, LACTIC ACID W/REFLEX, BLOOD CULTURE, WOUND CULTURE REVIEWED AND INTERPRETED RESULTS: IMAGING ORDERED: NONE TREATMENTS ORDERED: ROCEPHIN 1 G IV, SOLUMDEROL 125MG IVP AND BENADRYL 25MG IVP PROCEDURES PERFORMED: NONE CRITICAL CARE TIME: NONE I HAVE DISCUSSED THE PATIENT WITH THE ATTENDING PHYSICIAN DR. COLE AND HE AGREES WITH THE PATIENT'S PLAN OF CARE. SHARED DECISION MAKING: I HAVE DISCUSSED WITH THE PATIENT THAT SINCE HIS ECZEMA FLARE HAS NOW BECOME A SECONDARY INFECTION AND THERE IS NO IMPROVEMENT IN HIS SYMPTOMS, HE WILL NEED TO BE ADMITTED FOR FURTHER TREATMENT AND EVALUATION. PATIENT AGREES WITH MY PLAN OF CARE. A 84 YEAR OLD MALE PRESENTED TO THE ED C/O RASH OF BILATERAL ARMS, NECK, AND EYELIDS FOR THE PAST 2 MONTHS WITH WORSENING SYMPTOMS FOR THE PAST 2 WEEKS. UPON MY PHYSICAL EXAMINATION, THE PATIENT HAD A DRY SCALY RASH WITH YELLOW PUS DRAINAGE WITH LOCALIZED REDNESS AND SWELLING NOTED TO HIS BILATERAL WRISTS, FOREARMS, AND NECK CONSISTENT WITH AN ECZEMA FLARE AND A SECONDARY SOFT TISSUE INFECTION. MY DIFFERENTIAL DIAGNOSIS INCLUDES, CELLULITIS, ATOPIC DERMATITIS, ECZEMA FLARE, ERYSIPELAS, PSORIASIS, SECONDARY SOFT TISSUE INFECTION. LABS WERE ORDERED FOR THE PATIENT AND THERE WERE NO ACUTE FINDINGS. DUE TO THE PATIENT'S CLINICAL EXAM FINDINGS BEING CONSISTENT WITH AN ECZEMA FLARE AND SECONDARY SOFT TISSUE INFECTION, I HAVE DETERMINED THE PATIENT SHOULD BE ADMITTED FOR FURTHER TREATMENT AND EVALUATION. THE ON-CALL ADMITTING PHYSICIAN WILL BE CONTACTED FOR ADMISSION OF THIS PATIENT. Time of 1ST Reevaluation: 17:45 Reevaluation 1ST: Unchanged Patient Education/Counseling: Diagnosis, Treatment Family Education/Counseling: Diagnosis, Treatment Departure 1 Departure Time of Disposition: 17:45 Impression: Primary Impression: Exacerbation of eczema Additional Impression: Cellulitis of multiple sites of hand and wrist Disposition: ADMITTED INPATIENT Admit to: Med Surg Condition: Serious Critical Care Note Critical Care Time?: No Stability Stability form required: Yes Unstable for transfer: Requires medication, ED Physician Assesment, Possible rapid decline Heart Score Heart Score: Heart Score Response (Comments) Value History N/A 0 EKG N/A 0 Age N/A 0 Risk Factors N/A 0 Troponin N/A 0 Total 0 I personally scribed for WARD HINTON ([email or web address]) on 11/01/24 at 16:18. Electronically submitted by Domo Dinh ([employer]). I personally scribed for WARD HINTON ([email or web address]) on 11/01/24 at 16:57. Electronically submitted by Domo Dinh ([employer]). I personally scribed for WARD HINTON ([email or web address]) on 11/01/24 at 17:41. Electronically submitted by Domo Dinh ([employer]). WARD HINTON Nov 01, 2024 16:18
[2024-11-01] MEDS: SODIUM CHLORIDE 0.9% 1,000 ML IV ONE (16:48)
[2024-11-01 17:03] LABS: Chloride 106 mmol/L (98-107); Potassium 4.3 mmol/L (3.5-5.1); Sodium 141 mmol/L (136-145)
[2024-11-01 17:04] LABS: Anion Gap 6 (5-15); Carbon Dioxide 29 mmol/L (20-31)
[2024-11-01 17:09] LABS: BUN/Creatinine Ratio 17.7 (10.0-20.0); Blood Urea Nitrogen 20 mg/dL (9-23); Glucose 97 mg/dL (74-106)
[2024-11-01 17:13] LABS: Basophils # (auto) 0 10 ^3/uL (0-0.2); Basophils % (auto) 0.6 % (0.0-2.0); Eosinophils # (auto) 0.1 10 ^3/uL (0-0.8); Eosinophils % (auto) 2.7 % (0.0-7.0); Mean Corpuscular Hemoglobin 33.1 pg (28.0-32.0); Mean Corpuscular Hgb Conc. 33.4 g/dL (32.0-36.0); Mean Corpuscular Volume 99.1 fL (80.0-100.0); Monocytes # (auto) 0.3 10 ^3/uL (0-1.3); Monocytes % (auto) 5.7 % (0.0-12.0); Neutrophils # (auto) 3.5 10 ^3/uL (1.6-8.6); Nucleated Red Blood Cells % 0.3 %; Platelet Count (auto) 199 10^3/uL (140-450); Red Blood Cells 4.24 10^6/uL (4.5-5.90); Red Cell Distribution Width 13.5 % (11.8-14.3)
[2024-11-01] MEDS: SODIUM CHLORIDE 0.9% 500 ML IV ONE (18:03)
[2024-11-01] MEDS: cefTRIAXone 1GM/50ML D5W 50 ML IV ONE (18:14)
[2024-11-01] MEDS: methylPREDNISolone SOD SUCC 125 MG/2 ML VL IV ONE (18:14)
[2024-11-01] MEDS: diphenhdrAMINE HCL 50 MG/1 ML VL IV ONE (18:14)
[2024-11-01] MEDS ORDERED: HYDROcodone-ACET 5/325MG TAB PO PRN (19:30)
[2024-11-01] MEDS ORDERED: ONDANSETRON HCL 4 MG/2 ML VIAL IV PRN (19:30)
[2024-11-01] MEDS ORDERED: diphenhdrAMINE HCL 25 MG CAP PO PRN (19:30)
[2024-11-01 20:33] LABS: Hematocrit 40.1 % (41.0-53.0); Hemoglobin 13.4 g/dL (13.5-17.5)
[2024-11-01] MEDS: CLINDAMYCIN 600MG IV 50 ML IV SCH (22:00)
[2024-11-01] MEDS: ATORVASTATIN 20 MG TAB PO SCH (22:00)
[2024-11-01 23:28] VITALS: BP 160/67; PULSE 61; PULSE 71; RESP 17; RESP 18; TEMP 98.3; O2SAT 94
[2024-11-02] VITALS (7 sets, daily range): BP systolic 108–148; BP diastolic 59–80; PULSE 63–82; RESP 12–20; TEMP 97.7–98.8; O2SAT 95–100
[2024-11-02 01:09] LABS: Urine Bacteria FEW /hpf (None Seen); Urine Blood Negative /uL (Negative); Urine Clarity Clear (Clear); Urine Color Light-Yellow (Yellow); Urine Mucus FEW (None Seen); Urine Protein, UAD Negative (Negative); Urine Specific Gravity 1.019 (1.001-1.035); Urine Urobilinogen Normal (Negative); Urine WBC 1 /hpf (0 - 3); Urine pH 5.5 (5.0-9.0)
--- NOTE | 2024-11-02 05:04 | DVHHP2 ---
History of Present Illness Reason for Visit: Rash History of Present Illness 84-year-old male presents for evaluation of a rash. The patient reports having a rash to bilateral forearms and face/neck for the past two months. He states that over the past two weeks it has progressively worsened. States worsening redness with itching and mild drainage from the affected areas. Denies fever or chills. No other acute complaints reported. Past Medical History Hypertension and dyslipidemia Past Surgical History Denies Family History Noncontributory Smoke: <1 pack per day ALCOHOL: occassional Drugs: None Lives: with Family Review of Systems Review of Systems Review of systems are currently negative otherwise dressing HPI. Allergies: Coded Allergies: NO KNOWN ALLERGIES (Unverified , 06/12/18) Medications Current Medications Medications Dose Ordered Sig/Pamela Route Start Time Stop Time Status Last Admin Dose Admin Ceftriaxone Sodium 50 ml @ 100 mls/hr DAILY@09 IV 11/02/24 09:00 Clindamycin Phosphate 50 ml @ 50 mls/hr Q8HR IV 11/01/24 22:00 11/01/24 22:00 50 MLS/HR Diphenhydramine HCl 25 mg Q6HP PRN PO 11/01/24 19:30 Tamsulosin HCl 0.4 mg QPM PO 11/02/24 18:00 Benazepril HCl 20 mg DAILY PO 11/02/24 10:00 Hydrochlorothiazide 12.5 mg DAILY PO 11/02/24 10:00 Atorvastatin Calcium 20 mg HS PO 11/01/24 22:00 11/01/24 22:00 20 MG Acetaminophen/ Hydrocodone Bitart 1 tab Q4HP PRN PO 11/01/24 19:30 Ondansetron HCl 4 mg Q4HP PRN IV 11/01/24 19:30 Acetaminophen 650 mg Q6HP PRN PO 11/01/24 19:30 Exam Vital Signs Vital Signs Date Time Temp Pulse Resp B/P (MAP) Pulse Ox O2 Delivery O2 Flow Rate FiO2 11/02/24 01:00 98.0 63 18 108/69 (82) 95 98.0 11/01/24 23:28 Room Air* 0 21 Exam Gen: 84-year-old male in mild distress Skin: Warm, dry, normal color and texture, facial rash, bilateral forearm redness HEENT: Normocephalic atraumatic, mucous membranes moist and pink. Neck: Cervical and supraclavicular nodes normal without enlargement, trachea is midline, thyroid gland is normal without masses. Pulmonary: Clear to auscultation and percussion bilaterally. Cardiac: Regular rate and rhythm. No murmur Abdomen: Soft, nontender, nondistended, bowel sounds present all 4 quadrants, no guarding, no rigidity, no organomegaly. Extremities: No cyanosis, clubbing, no edema Neuro: Cranial nerves II through XII grossly intact, normal affect and speech, no focal motor deficits. Labs/Xrays Labs Test 11/02/24 00:40 11/01/24 19:56 11/01/24 16:37 Range/Units Urine Color Light-yellow Yellow Urine Clarity Clear Clear Urine pH 5.5 5.0-9.0 Urine Specific [place] 1.019 1.001-1.035 Urine Protein Negative Negative Urine Ketones 1+ H Negative Urine Blood Negative Negative /uL Urine Nitrite Negative Negative Urine Bilirubin Negative Negative Urine Urobilinogen Normal Negative mg/dL Urine Leukocyte Esterase Negative Negative /uL Urine RBC <1 0 - 3 /hpf Urine WBC 1 0 - 3 /hpf Urine Squamous Epithelial Cells Few <5 /hpf Urine Bacteria Few H None Seen /hpf Urine Mucus Few None Seen Urine Glucose Normal Normal mg/dL Hemoglobin 13.4 L 13.5-17.5 g/dL Hematocrit 40.1 L 41.0-53.0 % White Blood Count 5.0 4.4-10.8 10^3/uL Red Blood Count 4.24 L 4.5-5.90 10^6/uL Mean Corpuscular Volume 99.1 80.0-100.0 fL Mean Corpuscular Hemoglobin 33.1 H 28.0-32.0 pg Mean Corpuscular Hemoglobin Concent 33.4 32.0-36.0 g/dL Red Cell Distribution Width 13.5 11.8-14.3 % Platelet Count 199 140-450 10^3/uL Mean Platelet Volume 7.9 6.9-10.8 fL Neutrophils (%) (Auto) 71.0 37.0-80.0 % Lymphocytes (%) (Auto) 20.0 10.0-50.0 % Monocytes (%) (Auto) 5.7 0.0-12.0 % Eosinophils (%) (Auto) 2.7 0.0-7.0 % Basophils (%) (Auto) 0.6 0.0-2.0 % Neutrophils # (Auto) 3.5 1.6-8.6 10 ^3/uL Lymphocytes # (Auto) 1.0 0.4-5.4 10 ^3/uL Monocytes # (Auto) 0.3 0-1.3 10 ^3/uL Eosinophils # (Auto) 0.1 0-0.8 10 ^3/uL Basophils # (Auto) 0 0-0.2 10 ^3/uL Nucleated Red Blood Cells 0.3 % Sodium Level 141 136-145 mmol/L Potassium Level 4.3 3.5-5.1 mmol/L Chloride Level 106 98-107 mmol/L Carbon Dioxide Level 29 20-31 mmol/L Anion Gap 6 5-15 Blood Urea Nitrogen 20 9-23 mg/dL Creatinine 1.13 0.700-1.30 mg/dL Glomerular Filtration Rate Calc 64 >90 mL/min BUN/Creatinine Ratio 17.7 10.0-20.0 Serum Glucose 97 74-106 mg/dL Lactic Acid Level 1.6 0.4-2.0 mmol/L Calcium Level 10.0 8.7-10.4 mg/dL Assessment/Plan Assessment/Plan Assessment Cellulitis of multiple sites Possible eczema Hypertension Plan Admit the patient to Med [facility] to the hospitalist Rocephin/clindamycin Resume home medications Continue treatment per orders. Plan discussed with: Patient My Orders Orders - HOMER MANCILLA AGACNP Procedure Category Date Status Time Ceftriaxone 1gm/50ml PHA 11/02/24 In Process D5w (Rocephin) 09:00 Clindamycin 600mg Iv PHA 11/01/24 In Process (Cleocin Iv) 22:00 Diphenhdramine PHA 11/01/24 In Process Capsule (Benadryl 19:30 Tamsulosin PHA 11/02/24 In Process Hydrochloride (Flomax) 18:00 Benazepril Hcl Tablet PHA 11/02/24 In Process (Lotensin Tablet) 10:00 Hydrochlorothiazide PHA 11/02/24 In Process Tablet (Hydrochlorot 10:00 Atorvastatin (Lipitor) PHA 11/01/24 In Process 22:00 Admit ADMIT 11/01/24 Transmitted 19:24 Hydrocodone-Acet PHA 11/01/24 In Process 5/325mg Tab ([place] 19:30 Ondansetron Hcl PHA 11/01/24 In Process (Zofran) 19:30 Cardiac DIET 11/02/24 Transmitted Diet-2gna,Lofat,Lochol Breakfast Condition: Stable SONY 11/01/24 In Process 19:24 Acetaminophen Tablet PHA 11/01/24 In Process (Tylenol Tablet) 19:30 Bedrest With Bathroom SONY 11/01/24 In Process Privileg 19:24 Date of Service: Nov 01, 2024 Billing Provider: HOMER MANCILLA Common Visit Codes: [id number] INP/OBS CARE (MOD) HOMER MANCILLA Nov 02, 2024 05:04
[2024-11-02] MEDS: hydroCHLOROthiazide 25 MG TAB PO SCH (10:39)
[2024-11-02] MEDS: BENAZEPRIL HCL 10 MG TAB PO SCH (10:40)
[2024-11-02] MEDS: cefTRIAXone 1GM/50ML D5W 50 ML IV SCH (10:44)
--- NOTE | 2024-11-02 13:38 | DVHPN2 ---
Reviewed: Care Plan, H&P, Labs, Medications, Previous Orders, Radiology Changes from previous H/P or p: No Changes Objective Vitals Vital Signs Date Time Temp Pulse Resp B/P (MAP) Pulse Ox O2 Delivery O2 Flow Rate FiO2 11/02/24 10:40 142/78 11/02/24 09:00 97.7 67 12 98 97.7 11/02/24 08:05 Room Air* 0 21 Intake/Output Intake and Output 11/02/24 07:00 Intake Total 800 ml Output Total 300 ml Balance 500 ml Intake Oral 150 ml IV Total 650 ml Output Urine Total 300 ml Medications Current Medications Medications Dose Ordered Sig/Pamela Route Start Time Stop Time Status Last Admin Dose Admin Ceftriaxone Sodium 50 ml @ 100 mls/hr DAILY@09 IV 11/02/24 09:00 11/02/24 10:44 100 MLS/HR Clindamycin Phosphate 50 ml @ 50 mls/hr Q8HR IV 11/01/24 22:00 11/02/24 13:11 50 MLS/HR Diphenhydramine HCl 25 mg Q6HP PRN PO 11/01/24 19:30 Tamsulosin HCl 0.4 mg QPM PO 11/02/24 18:00 Benazepril HCl 20 mg DAILY PO 11/02/24 10:00 11/02/24 10:40 20 MG Hydrochlorothiazide 12.5 mg DAILY PO 11/02/24 10:00 11/02/24 10:39 12.5 MG Atorvastatin Calcium 20 mg HS PO 11/01/24 22:00 11/01/24 22:00 20 MG Acetaminophen/ Hydrocodone Bitart 1 tab Q4HP PRN PO 11/01/24 19:30 Ondansetron HCl 4 mg Q4HP PRN IV 11/01/24 19:30 Acetaminophen 650 mg Q6HP PRN PO 11/01/24 19:30 Calamine 1 applic QIDP PRN TOP 11/02/24 05:00 Laboratory Results Laboratory Tests 11/01/24 16:37 11/01/24 19:56 Chemistry Test 11/01/24 16:37 Calcium Level 10.0 mg/dL (8.7-10.4) Urinalysis Test 11/02/24 00:40 Urine Color Light-yellow (Yellow) Urine Clarity Clear (Clear) Urine pH 5.5 (5.0-9.0) Urine Specific [place] 1.019 (1.001-1.035) Urine Protein Negative (Negative) Urine Ketones 1+ (Negative) H Urine Blood Negative /uL (Negative) Urine Nitrite Negative (Negative) Urine Bilirubin Negative (Negative) Urine Urobilinogen Normal mg/dL (Negative) Urine Leukocyte Esterase Negative /uL (Negative) Urine RBC <1 /hpf (0 - 3) Urine WBC 1 /hpf (0 - 3) Urine Squamous Epithelial Cells Few /hpf (<5) Urine Bacteria Few /hpf (None Seen) H Urine Mucus Few (None Seen) Urine Glucose Normal mg/dL (Normal) Microbiology Microbiology Date/Time Source Procedure Growth Status 11/01/24 20:00 Wrist Gram Stain Pending Resulted 11/01/24 20:00 Wrist Wound Culture - Preliminary Resulted 11/01/24 16:37 Blood Blood Culture - Preliminary Resulted Labs and/or images reviewed: Labs reviewed by me, Image(s) reviewed by me Assessment/Plan Assessment/Plan Cellulitis bilateral upper extremities: Rocephin clindamycin Bacteremia with cocci, continue clindamycin until final result Wound infection with staphylococci Hypotension Hypercholesterolemia Time spent 40 minutes Plan discussed with: Patient Date of Service: Nov 02, 2024 Billing Provider: BHUPINDER VEGA MD Common Visit Codes: [id number] INP/OBS CARE(HIGH) BHUPINDER VEGA MD Nov 02, 2024 13:38
[2024-11-02] MEDS: TAMSULOSIN HYDROCHLORIDE 0.4 MG CAP PO SCH (17:22)
[2024-11-02] MEDS: ACETAMINOPHEN 325 MG TAB PO PRN (21:05)
[2024-11-03 05:00] VITALS: BP 128/68; PULSE 60; RESP 18; TEMP 98.2; O2SAT 96
[2024-11-03 09:11] VITALS: BP 120/75; PULSE 53; RESP 15; TEMP 98.3; O2SAT 99
[2024-11-03] MEDS ORDERED: VANCOMYCIN PER PHARMACY 0 MG IV SCH (11:15)
[2024-11-03] MEDS: CALAMINE TOPical LOTION180 ML TOP PRN (11:16)
--- NOTE | 2024-11-03 11:16 | DVHPN2 ---
Reviewed: Care Plan, H&P, Labs, Medications, Previous Orders, Radiology Changes from previous H/P or p: No Changes Objective Vitals Vital Signs Date Time Temp Pulse Resp B/P (MAP) Pulse Ox O2 Delivery O2 Flow Rate FiO2 11/03/24 09:49 120/85 11/03/24 09:11 98.3 53 15 99 98.3 11/03/24 07:50 Room Air* 0 21 Intake/Output Intake and Output 11/03/24 07:00 Intake Total 1854 ml Output Total 550 ml Balance 1304 ml Intake Oral 1654 ml IV Total 200 ml Output Urine Total 550 ml # Voids 3 # Bowel Movements 1 Medications Current Medications Medications Dose Ordered Sig/Pamela Route Start Time Stop Time Status Last Admin Dose Admin Ceftriaxone Sodium 50 ml @ 100 mls/hr DAILY@09 IV 11/02/24 09:00 11/03/24 09:49 100 MLS/HR Clindamycin Phosphate 50 ml @ 50 mls/hr Q8HR IV 11/01/24 22:00 11/03/24 05:21 50 MLS/HR Diphenhydramine HCl 25 mg Q6HP PRN PO 11/01/24 19:30 Tamsulosin HCl 0.4 mg QPM PO 11/02/24 18:00 11/02/24 17:22 0.4 MG Benazepril HCl 20 mg DAILY PO 11/02/24 10:00 11/03/24 09:49 20 MG Hydrochlorothiazide 12.5 mg DAILY PO 11/02/24 10:00 11/03/24 09:49 12.5 MG Atorvastatin Calcium 20 mg HS PO 11/01/24 22:00 11/02/24 21:00 20 MG Acetaminophen/ Hydrocodone Bitart 1 tab Q4HP PRN PO 11/01/24 19:30 Ondansetron HCl 4 mg Q4HP PRN IV 11/01/24 19:30 Acetaminophen 650 mg Q6HP PRN PO 11/01/24 19:30 11/02/24 21:05 650 MG Calamine 1 applic QIDP PRN TOP 11/02/24 05:00 Laboratory Results Laboratory Tests 11/01/24 16:37 11/01/24 19:56 Urinalysis Test 11/02/24 00:40 Urine Color Light-yellow (Yellow) Urine Clarity Clear (Clear) Urine pH 5.5 (5.0-9.0) Urine Specific [place] 1.019 (1.001-1.035) Urine Protein Negative (Negative) Urine Ketones 1+ (Negative) H Urine Blood Negative /uL (Negative) Urine Nitrite Negative (Negative) Urine Bilirubin Negative (Negative) Urine Urobilinogen Normal mg/dL (Negative) Urine Leukocyte Esterase Negative /uL (Negative) Urine RBC <1 /hpf (0 - 3) Urine WBC 1 /hpf (0 - 3) Urine Squamous Epithelial Cells Few /hpf (<5) Urine Bacteria Few /hpf (None Seen) H Urine Mucus Few (None Seen) Urine Glucose Normal mg/dL (Normal) Microbiology Microbiology Date/Time Source Procedure Growth Status 11/01/24 20:00 Wrist Gram Stain Pending Resulted 11/01/24 20:00 Wound Culture - Final Methicillin Resistant S.aureus Resulted 11/01/24 16:37 Blood Blood Culture - Preliminary NO GROWTH AFTER 24 HOURS OF INCUBATION. Resulted Labs and/or images reviewed: Labs reviewed by me Assessment/Plan Assessment/Plan Cellulitis bilateral upper extremities: Rocephin clindamycin Chronic eczema bilateral upper extremities MRSA bacteremia DC Rocephin clindamycin, start vancomycin Wound infection with MRSA Hypotension Hypercholesterolemia Time spent 40 minutes Plan discussed with: Patient Date of Service: Nov 03, 2024 Billing Provider: BHUPINDER VEGA MD Common Visit Codes: [id number] INP/OBS CARE(HIGH) BHUPINDER VEGA MD Nov 03, 2024 11:16
[2024-11-03] MEDS: VANCOMYCIN 1GM/250ML KIT 250 ML IV ONE (12:04)
[2024-11-03 12:33] VITALS: BP 155/65; PULSE 50; RESP 17; TEMP 98.1; O2SAT 100
[2024-11-03 12:50] VITALS: BP 151/95; PULSE 66; RESP 18; TEMP 97.8; O2SAT 92
[2024-11-03] MEDS: methylPREDNISolone SOD SUCC 125 MG/2 ML VL IV ONE (13:08)
[2024-11-03] MEDS: diphenhdrAMINE HCL 50 MG/1 ML VL IV ONE (13:08)
[2024-11-03 16:41] VITALS: BP 152/57; PULSE 60; RESP 17; TEMP 98.1; O2SAT 95
[2024-11-03 21:00] VITALS: BP 134/74; PULSE 65; RESP 18; TEMP 98.8; O2SAT 96
[2024-11-03 21:37] LABS: Amphetamine Screen, Urine Pos (NEGATIVE); Barbiturate Scree,Urine Neg (NEGATIVE); Benzodiazephine Screen, Urine Neg (NEGATIVE); Cannabinoid Screen, Urine Neg (NEGATIVE); Cocaine Screen, Urine Neg (NEGATIVE); Opiate Scree,Urine Neg (NEGATIVE); Phencyclidine Screen, Urine Neg (NEGATIVE)
[2024-11-03] MEDS: CLINDAMYCIN 300MG IV 50 ML IV SCH (22:15)
[2024-11-04 01:00] VITALS: BP 136/76; PULSE 65; RESP 20; TEMP 98.4; O2SAT 99
[2024-11-04 05:00] VITALS: BP 140/78; PULSE 68; RESP 18; TEMP 98.2; O2SAT 97
[2024-11-04 08:00] VITALS: RESP 18
[2024-11-04 08:50] VITALS: BP 148/63; PULSE 62; RESP 17; TEMP 97.6; O2SAT 92
--- NOTE | 2024-11-04 09:14 | DVHPN2 ---
Reviewed: Care Plan, H&P, Labs, Medications, Previous Orders, Radiology Changes from previous H/P or p: No Changes Objective Vitals Vital Signs Date Time Temp Pulse Resp B/P (MAP) Pulse Ox O2 Delivery O2 Flow Rate FiO2 11/04/24 08:57 148/63 11/04/24 08:50 97.6 62 17 92 97.6 11/03/24 20:00 Room Air* 0 21 Intake/Output Intake and Output 11/04/24 07:00 Intake Total 1250 ml Balance 1250 ml Intake Oral 1200 ml IV Total 50 ml # Voids 7 # Bowel Movements 1 Medications Current Medications Medications Dose Ordered Sig/Pamela Route Start Time Stop Time Status Last Admin Dose Admin Diphenhydramine HCl 25 mg Q6HP PRN PO 11/01/24 19:30 Tamsulosin HCl 0.4 mg QPM PO 11/02/24 18:00 11/03/24 17:48 0.4 MG Benazepril HCl 20 mg DAILY PO 11/02/24 10:00 11/04/24 08:57 20 MG Hydrochlorothiazide 12.5 mg DAILY PO 11/02/24 10:00 11/04/24 08:57 12.5 MG Atorvastatin Calcium 20 mg HS PO 11/01/24 22:00 11/03/24 22:15 20 MG Acetaminophen/ Hydrocodone Bitart 1 tab Q4HP PRN PO 11/01/24 19:30 Ondansetron HCl 4 mg Q4HP PRN IV 11/01/24 19:30 Acetaminophen 650 mg Q6HP PRN PO 11/01/24 19:30 11/02/24 21:05 650 MG Calamine 1 applic QIDP PRN TOP 11/02/24 05:00 11/03/24 11:16 1 APPLIC Clindamycin Phosphate 50 ml @ 50 mls/hr Q8HR IV 11/03/24 22:00 11/04/24 05:43 50 MLS/HR Laboratory Results Laboratory Tests 11/01/24 16:37 11/01/24 19:56 Urinalysis Test 11/02/24 00:40 Urine Color Light-yellow (Yellow) Urine Clarity Clear (Clear) Urine pH 5.5 (5.0-9.0) Urine Specific [place] 1.019 (1.001-1.035) Urine Protein Negative (Negative) Urine Ketones 1+ (Negative) H Urine Blood Negative /uL (Negative) Urine Nitrite Negative (Negative) Urine Bilirubin Negative (Negative) Urine Urobilinogen Normal mg/dL (Negative) Urine Leukocyte Esterase Negative /uL (Negative) Urine RBC <1 /hpf (0 - 3) Urine WBC 1 /hpf (0 - 3) Urine Squamous Epithelial Cells Few /hpf (<5) Urine Bacteria Few /hpf (None Seen) H Urine Mucus Few (None Seen) Urine Glucose Normal mg/dL (Normal) Microbiology Microbiology Date/Time Source Procedure Growth Status 11/01/24 20:00 Wrist Gram Stain - Final Complete 11/01/24 20:00 Wound Culture - Final Methicillin Resistant S.aureus Complete 11/01/24 16:37 Blood Blood Culture - Preliminary NO GROWTH AFTER 48 HOURS OF INCUBATION. Resulted Labs and/or images reviewed: Labs reviewed by me, Image(s) reviewed by me Assessment/Plan Assessment/Plan Cellulitis bilateral upper extremities: Rocephin clindamycin Chronic eczema bilateral upper extremities MRSA bacteremia patient developed allergy to vancomycin, vancomycin discontinued and started on clindamycin 300 mg IV q.8 hours Wound infection with MRSA Hypotension Hypercholesterolemia Patient wants to go home Time spent 40 minutes Plan discussed with: Patient My Orders Orders - BHUPINDER VEGA MD Procedure Category Date Status Time Clindamycin 300mg Iv PHA 11/03/24 In Process (Cleocin Iv) 22:00 Date of Service: Nov 04, 2024 Billing Provider: BHUPINDER VEGA MD Common Visit Codes: [id number] INP/OBS CARE(HIGH) BHUPINDER VEGA MD Nov 04, 2024 09:14
[2024-11-04] MEDS ORDERED: CLIN1CAP70 PO (09:15)
--- NOTE | 2024-11-04 09:20 | DVHDS2 ---
Discharge Summary Date of Admission Nov 01, 2024 at 19:24 Date of Discharge: Nov 04, 2024 Admitting Diagnosis Infected chronic eczematous skin lesions Wounds: Infected eczematous lesions Labs/Diagnostic Data: Laboratory Results Test 11/02/24 00:40 11/01/24 19:56 11/01/24 16:37 Urine Color Light-yellow (Yellow) Urine Clarity Clear (Clear) Urine pH 5.5 (5.0-9.0) Urine Specific [place] 1.019 (1.001-1.035) Urine Protein Negative (Negative) Urine Ketones 1+ (Negative) Urine Blood Negative /uL (Negative) Urine Nitrite Negative (Negative) Urine Bilirubin Negative (Negative) Urine Urobilinogen Normal mg/dL (Negative) Urine Leukocyte Esterase Negative /uL (Negative) Urine RBC <1 /hpf (0 - 3) Urine WBC 1 /hpf (0 - 3) Urine Squamous Epithelial Cells Few /hpf (<5) Urine Bacteria Few /hpf (None Seen) Urine Mucus Few (None Seen) Urine Glucose Normal mg/dL (Normal) Urine Opiates Screen Neg (NEGATIVE) Urine Fentanyl Screen Neg (NEGATIVE) Urine Barbiturates Screen Neg (NEGATIVE) Urine Phencyclidine Screen Neg (NEGATIVE) Urine Amphetamines Screen Pos (NEGATIVE) Urine Benzodiazepines Screen Neg (NEGATIVE) Urine Cocaine Screen Neg (NEGATIVE) Urine Cannabinoids Screen Neg (NEGATIVE) Hemoglobin 13.4 g/dL (13.5-17.5) Hematocrit 40.1 % (41.0-53.0) White Blood Count 5.0 10^3/uL (4.4-10.8) Red Blood Count 4.24 10^6/uL (4.5-5.90) Mean Corpuscular Volume 99.1 fL (80.0-100.0) Mean Corpuscular Hemoglobin 33.1 pg (28.0-32.0) Mean Corpuscular Hemoglobin Concent 33.4 g/dL (32.0-36.0) Red Cell Distribution Width 13.5 % (11.8-14.3) Platelet Count 199 10^3/uL (140-450) Mean Platelet Volume 7.9 fL (6.9-10.8) Neutrophils (%) (Auto) 71.0 % (37.0-80.0) Lymphocytes (%) (Auto) 20.0 % (10.0-50.0) Monocytes (%) (Auto) 5.7 % (0.0-12.0) Eosinophils (%) (Auto) 2.7 % (0.0-7.0) Basophils (%) (Auto) 0.6 % (0.0-2.0) Neutrophils # (Auto) 3.5 10 ^3/uL (1.6-8.6) Lymphocytes # (Auto) 1.0 10 ^3/uL (0.4-5.4) Monocytes # (Auto) 0.3 10 ^3/uL (0-1.3) Eosinophils # (Auto) 0.1 10 ^3/uL (0-0.8) Basophils # (Auto) 0 10 ^3/uL (0-0.2) Nucleated Red Blood Cells 0.3 % Sodium Level 141 mmol/L (136-145) Potassium Level 4.3 mmol/L (3.5-5.1) Chloride Level 106 mmol/L (98-107) Carbon Dioxide Level 29 mmol/L (20-31) Anion Gap 6 (5-15) Blood Urea Nitrogen 20 mg/dL (9-23) Creatinine 1.13 mg/dL (0.700-1.30) Glomerular Filtration Rate Calc 64 mL/min (>90) BUN/Creatinine Ratio 17.7 (10.0-20.0) Serum Glucose 97 mg/dL (74-106) Lactic Acid Level 1.6 mmol/L (0.4-2.0) Calcium Level 10.0 mg/dL (8.7-10.4) Other Laboratory Tests 11/01/24 19:56 11/01/24 16:37 Brief Hx & Hospital Course: 54-year-old male with a chronic eczema came in complaining of eczematous infected skin lesions found to have cellulitis bilateral upper extremities started on Rocephin. Blood cultures and wound cultures grew MRSA started on vancomycin he developed pathology changed to clindamycin patient wants to be discharged home today to go for [place]. Discharged home on p.o. clindamycin Consults/Reason for consult None Operations or Procedures None Condition at Discharge: Fair Final Diagnosis/Problems List Cellulitis bilateral upper extremities: Rocephin clindamycin Chronic eczema bilateral upper extremities MRSA bacteremia patient developed allergy to vancomycin, vancomycin discontinued and started on clindamycin 300 mg IV q.8 hours Wound infection with MRSA Hypotension Hypercholesterolemia Discharge Disposition: Home Discharge Instruct/Medications Diet: Cardiac 2g Na,low cholest Activity: Light activity Follow Up/Referral: Resume all your previous home medications Follow up with your primary Dr Medications: Clindamycin 300 mg PO TID # 60 35 (Time taken for discharge summary 35 minutes) Discharge Statement: "Patient was advised to return to the ER or call 911 if any headaches, dizziness, shortness of breath, chest pain, abdominal pain, bleeding, fevers, or worsening of medical condition. Patient was counseled about treatment plan, medications, possible side effects, patientverbalized understanding. All questions were answered to the best of my ability. This discharge took greater then 30 minutes in planning, reviewing documentation, counseling the patient, and discussing with other team members." ASSESSMENT ASSESSMENT Hospital Course Improved Assessment Cellulitis bilateral upper extremities: Rocephin clindamycin Chronic eczema bilateral upper extremities MRSA bacteremia patient developed allergy to vancomycin, vancomycin discontinued and started on clindamycin 300 mg IV q.8 hours Wound infection with MRSA Hypotension Hypercholesterolemia Date of Service: Nov 04, 2024 Billing Provider: BHUPINDER VEGA MD Common Visit Codes: [id number] DISCH DAY >30min BHUPINDER VEGA MD Nov 04, 2024 09:20
[2024-11-04 10:38] VITALS: BP 135/63; PULSE 64; RESP 18; TEMP 36.4; O2SAT 93
== END 2024-11-04 13:15 | disposition home or self-care (01) | DRG 603 ==
LOC: ER 15:18 → OVERFLOW 19:24 → EAST 19:29
PROVIDERS: ADMIT Nurse Practitioner; ATTEND Family Medicine
DX: L03.116 Cellulitis of left lower limb (principal); R78.81 Bacteremia; L03.115 Cellulitis of right lower limb; I10 Essential (primary) hypertension; L30.9 Dermatitis, unspecified; I95.9 Hypotension, unspecified; E78.00 Pure hypercholesterolemia, unspecified; F17.210 Nicotine dependence, cigarettes, uncomplicated; T36.8X5A Adverse effect of other systemic antibiotics, initial encounter; B95.62 Methicillin resistant Staphylococcus aureus infection as the cause of diseases classified elsewhere; Z88.1 Allergy status to other antibiotic agents; Z79.899 Other long term (current) drug therapy
CPT/HCPCS: 36415; 80048; 80307; 81001; 83605; 85014; 85018; 85025; 87040; 87077; 87147; 87186; 87205; G0378; J3490

== ENCOUNTER 2024-11-20 21:44 | Emergency (ER) | payer BC, MEDICAID ==
[~2024-11-20] VITALS: Ht 160 cm; Wt 60.0 kg
--- NOTE | 2024-11-20 22:06 | ED.PDOC ---
History of Present Illness HPI Comments 84 y/o M, with a Hx of HLD, HTN, hypotension, UTI's., MRSA, eczema, cellulitis, and tobacco use, is BIBA for c/o generalized body rash with associated pain, today. Per EMS report, patient is a [place] speaker and endorses on progressively worsening symptoms for the past month, since initial onset that began with bilateral arm rashes. He comments on pain being a 2/10 in severity and diagnosed with eczema and cellulitis during previous hospital admission at [facility] in the month of October 2024, where he was treated with Rocephin and clindamycin. Patient was also reported to have been found hypertensive on scene, with him endorsing on not taking his hypertension medicat ion following discharge, due to being instructed so. At time of assessment, patient denies any fever, chills, nausea, vomiting, or other associated symptoms or modifiers at this time. Chief Complaint: Rash Time Seen by MD: 21:45 Primary Care Provider: DR DONATO Reviewed Notes: Nurses Notes, Medications, Allergies Allergies: Coded Allergies: NO KNOWN ALLERGIES (Unverified , 06/12/18) Home Meds Active Scripts Clindamycin Hcl (Clindamycin Hcl) 300 Mg Cap, 1 CAP PO TID, #60 CAP Prov:BHUPINDER VEGA MD 11/04/24 Cetirizine Hcl (EQ ALLERGY RELIEF) 10 Mg Tab, 10 MG OR DAILYP PRN for 10 Days, #10 TAB 0 Refills Prov:YADIEL HOLGUIN NP 08/14/24 Calamine-Zinc Oxide (Calamine 8-8 %) 1 Radha Radha, 1 APPLIC EX QID for 14 Days, #1 BOTTLE 0 Refills Prov:YADIEL HOLGUIN NP 08/14/24 Hydrocortisone (Topical) (Hydrocortisone) 2.5 % Lot, 1 APPLIC TOP BID for 7 Days, #60 ML 1 Refill Prov:YADIEL HOLGUIN NP 08/14/24 Acetaminophen (Tylenol 8 Hour Arthritis) 650 Mg Tab, 650 MG PO TID, #30 TAB Prov:WARD HINTON 07/29/24 Clindamycin Hcl (Clindamycin Hcl) 300 Mg Cap, 1 CAP PO TID, #30 CAP Prov:WARD HINTON 07/29/24 Polyethylene Glycol 3350 (Miralax) 17 Gm Pow, 17 GM PO TID for 10 Days, #30 POW Prov:JERO MATT DO 07/11/23 Reported Medications Naproxen (NAPROSYN TABLET) 500 Mg Tb, 1 TAB PO BID 02/15/24 Benazepril & Hydrochlorothiazi (Benazepril Hydrochloride/ 20-12.5 mg) 1 Tab Tab, 1 TAB PO DAILYPRN 10/18/21 Atorvastatin Calcium (ATORVASTATIN CALCIUM) 20 Mg Tab, 1 TAB PO DAILYPRN 10/18/21 Finasteride (Finasteride) 5 Mg Tab, 1 TAB PO DAILYPRN 10/18/21 Tamsulosin Hcl (Tamsulosin Hcl) 0.4 Mg Cap, 1 CAP PO DAILYPRN 10/18/21 Information Source: Patient, Emergency Med Personnel Mode of Arrival: EMS Severity: Moderate Timing: Months Duration: Since onset Prehospital treatment: 12 Lead EKG, [employer] Past Medical History PAST MEDICAL HISTORY: High Lipids, HTN, Hypotension, UTI'S Past Medical History (Other): wound infection w/MRSA, eczema, cellulitis Surgical History: Denies all surgeries Family History Family History: Reviewed,noncontributory to illness Social History Smoker: Cigar Alcohol: Occasionally Drugs: Denies Drug Use Lives In: Home Musculoskeletal: reports: others (Generalized body pain) Integumetry: reports: rash (Generalized) All Other Systems: Reviewed and Negative (Negative unless otherwise stated above in HPI) Physical Exam General Appearance: No Apparent Distress, Normal HEENT: Normal ENT Inspection, Pharynx Normal, TMs Normal Neck: Full Range of Motion, Non-Tender, Normal, Normal Inspection Respiratory: Chest Non-Tender, Lungs Clear, No Accessory Muscle Use, No Respiratory Distress, Normal Breath Sounds Cardiovascular: No Edema, No JVD, No Murmur, No Gallop, Normal Peripheral Pulses, Regular Rate/Rhythm Breast Exam: Deferred Gastrointestinal: No Organomegaly, Non Tender, No Pulsatile Mass, Normal Bowel Sounds, Soft Genitalia: Deferred Pelvic: Deferred Rectal: Deferred Extremities: No calf tenderness, Normal capillary refill, Normal inspection, Normal range of motion, Non-tender, No pedal edema Musculoskeletal : Apperance: Normal Neurologic: Alert, director index II-XII nml as Tested, No Motor Deficits, Normal Affect, Normal Mood, No Sensory Deficits Cerebellar Function: Normal Reflexes: Normal Skin: Dry, Normal Color, Rash, Warm Lymphatic: No Adenopathy Was a procedure done? Was a procedure done?: No Differential Dx Considerations may include: Eczema, cellulitis, sepsis X-Ray, Labs, Meds, VS Vital Signs Date Time Temp Pulse Resp B/P (MAP) Pulse Ox O2 Delivery O2 Flow Rate FiO2 11/20/24 21:50 98.9 68 16 152/90 (110) 99 Lab Test 11/20/24 22:06 Range/Units White Blood Count 5.3 4.4-10.8 10^3/uL Red Blood Count 4.04 L 4.5-5.90 10^6/uL Hemoglobin 13.2 L 13.5-17.5 g/dL Hematocrit 39.7 L 41.0-53.0 % Mean Corpuscular Volume 98.2 80.0-100.0 fL Mean Corpuscular Hemoglobin 32.7 H 28.0-32.0 pg Mean Corpuscular Hemoglobin Concent 33.3 32.0-36.0 g/dL Red Cell Distribution Width 13.9 11.8-14.3 % Platelet Count 186 140-450 10^3/uL Mean Platelet Volume 8.6 6.9-10.8 fL Neutrophils (%) (Auto) 54.3 37.0-80.0 % Lymphocytes (%) (Auto) 28.1 10.0-50.0 % Monocytes (%) (Auto) 6.6 0.0-12.0 % Eosinophils (%) (Auto) 10.2 H 0.0-7.0 % Basophils (%) (Auto) 0.8 0.0-2.0 % Neutrophils # (Auto) 2.9 1.6-8.6 10 ^3/uL Lymphocytes # (Auto) 1.5 0.4-5.4 10 ^3/uL Monocytes # (Auto) 0.4 0-1.3 10 ^3/uL Eosinophils # (Auto) 0.5 0-0.8 10 ^3/uL Basophils # (Auto) 0 0-0.2 10 ^3/uL Nucleated Red Blood Cells 0.0 % Sodium Level 142 136-145 mmol/L Potassium Level 4.0 3.5-5.1 mmol/L Chloride Level 107 98-107 mmol/L Carbon Dioxide Level 27 20-31 mmol/L Anion Gap 8 5-15 Blood Urea Nitrogen 22 9-23 mg/dL Creatinine 1.29 0.700-1.30 mg/dL Glomerular Filtration Rate Calc 55 >90 mL/min BUN/Creatinine Ratio 17.1 10.0-20.0 Serum Glucose 97 74-106 mg/dL Lactic Acid Level 1.1 0.4-2.0 mmol/L Calcium Level 9.8 8.7-10.4 mg/dL Total Bilirubin 0.3 0.2-1.0 mg/dL Aspartate Amino Transferase (AST) 16 13-40 U/L Alanine Aminotransferase (ALT) 16 7-40 U/L Alkaline Phosphatase 74 46-116 U/L Total Protein 6.4 5.7-8.2 g/dL Albumin 4.0 3.2-4.8 g/dL CBC essentially normal. CMP is essentially normal. The patient has severe chronic eczema. He was admitted last month for a skin infection with asthma. He was given pain meds and steroid injection. We will discharge the patient with clindamycin pain meds and again recommend him to follow up with Dermatology. Time of 1ST Reevaluation: 22:15 Reevaluation 1ST: Unchanged Patient Education/Counseling: Diagnosis, Treatment Family Education/Counseling: No Family Present Departure 1 Departure Time of Disposition: 03:04 Impression: Primary Impression: Exacerbation of eczema Disposition: 01 HOME / SELF CARE / HOMELESS Condition: Stable e-Prescriptions Hydrocodone-Acetaminophen (Hydrocodone Bitartrate/AC 5-325 mg) 1 Tab Tab 1 TAB PO QIDP, #20 TAB Prov: FLACA CROSS MD 11/21/24 Clindamycin Hcl (Clindamycin Hcl) 300 Mg Cap 1 CAP PO TID PRN, #30 CAP Prov: FLACA CROSS MD 11/21/24 Discharged With: Self Critical Care Note Critical Care Time?: No Stability Stability form required: No Heart Score Heart Score: Heart Score Response (Comments) Value History N/A 0 EKG N/A 0 Age N/A 0 Risk Factors N/A 0 Troponin N/A 0 Total 0 I personally scribed for FLACA CROSS MD ([email or web address]) on 11/20/24 at 22:06. Electronically submitted by Mathew Wallace ([email or web address]). I personally scribed for FLACA CRSOS MD ([email or web address]) on 11/20/24 at 22:17. Electronically submitted by Mathew Wallace ([email or web address]). FLACA CROSS MD Nov 20, 2024 22:06
[2024-11-20 22:42] LABS: Basophils # (auto) 0 10 ^3/uL (0-0.2); Basophils % (auto) 0.8 % (0.0-2.0); Eosinophils # (auto) 0.5 10 ^3/uL (0-0.8); Eosinophils % (auto) 10.2 % (0.0-7.0); Hematocrit 39.7 % (41.0-53.0); Hemoglobin 13.2 g/dL (13.5-17.5); Lymphocytes # (auto) 1.5 10 ^3/uL (0.4-5.4); Lymphocytes % (auto) 28.1 % (10.0-50.0); Mean Corpuscular Hemoglobin 32.7 pg (28.0-32.0); Mean Corpuscular Hgb Conc. 33.3 g/dL (32.0-36.0); Mean Corpuscular Volume 98.2 fL (80.0-100.0); Monocytes # (auto) 0.4 10 ^3/uL (0-1.3); Monocytes % (auto) 6.6 % (0.0-12.0); Neutrophils # (auto) 2.9 10 ^3/uL (1.6-8.6); Neutrophils % (auto) 54.3 % (37.0-80.0); Platelet Count (auto) 186 10^3/uL (140-450); Red Blood Cells 4.04 10^6/uL (4.5-5.90); Red Cell Distribution Width 13.9 % (11.8-14.3); White Blood Cell 5.3 10^3/uL (4.4-10.8)
[2024-11-20 22:47] LABS: Alanine Aminotransferase 16 U/L (7-40); Alkaline Phosphatase 74 U/L (46-116); Anion Gap 8 (5-15); Aspartate Aminotransferase 16 U/L (13-40); BUN/Creatinine Ratio 17.1 (10.0-20.0); Blood Urea Nitrogen 22 mg/dL (9-23); Calcium 9.8 mg/dL (8.7-10.4); Carbon Dioxide 27 mmol/L (20-31); Chloride 107 mmol/L (98-107); Glucose 97 mg/dL (74-106); Sodium 142 mmol/L (136-145); Total Protein 6.4 g/dL (5.7-8.2)
[2024-11-20 22:49] LABS: Bilirubin, Total 0.3 mg/dL (0.2-1.0)
[2024-11-21] MEDS ORDERED: CLIN1CAP70 PO (03:07)
[2024-11-21] MEDS ORDERED: HYDR-4902 PO (03:07)
[2024-11-21] MEDS: fentaNYL CITRATE 100 MCG/2 ML VL IV ONE (07:51)
[2024-11-21 07:55] VITALS: BP 147/81; TEMP 97.5
[2024-11-21 07:56] VITALS: PULSE 64; RESP 16; O2SAT 98
[2024-11-21] MEDS: methylPREDNISolone SOD SUCC 125 MG/2 ML VL IV ONE (08:00)
[2024-11-21] MEDS: DexAMETHasone SOD PHOS 10MG/1ML VIAL INJ IM ONE (08:00)
[2024-11-21] MEDS: VANCOMYCIN 1GM/250ML KIT 250 ML IV ONE (08:01)
[2024-11-21] MEDS: diphenhdrAMINE HCL 50 MG/1 ML VL IV ONE (08:41)
[2024-11-21] MEDS: CLINDAMYCIN 900MG IV 50 ML IV ONE (08:42)
== END 2024-11-21 09:03 | disposition home or self-care (01) ==
LOC: EDBD 21:44 → ER 21:44
DX: L30.9 Dermatitis, unspecified (principal); E78.5 Hyperlipidemia, unspecified; I10 Essential (primary) hypertension; F17.210 Nicotine dependence, cigarettes, uncomplicated; Z79.899 Other long term (current) drug therapy
CPT/HCPCS: 36415; 80053; 83605; 85025; 87040; 96365; 96372; 96375; 99284; J1100; J1200; J2919; J3370

== ENCOUNTER 2024-11-24 15:19 | Emergency (ER) | payer BC, MEDICAID ==
[~2024-11-24] VITALS: Ht 160 cm; Wt 141.0 kg
[~2024-11-24 15:19] MED LIST changes: +HYDR-4902 PO
--- NOTE | 2024-11-24 15:40 | ED.PDOC ---
History of Present Illness(SKN HPI Comments 84 year old male presents to the ED with chief complaint of rash. Patient reports that he has been experiencing a itchy, dry skin rash to bilateral arms and back for the past month. Patient relays that before a month ago he did not have any rashes and it came on suddenly. Patient states he has been seen in the ED prior for the same complaint, but medications that were prescribed did not relieve his rashes. Patient notes he has not seen a cook frozen dessert or his PCP regarding this situation, so he was advised today to contact his PCP for a referral to Dermatology for further evaluation of his rashes. Patient denies any fever, chills, chest pain, SOB, or N/V. Chief Complaint: Rash Time Seen by MD: 15:37 Primary Care Provider: DR DONATO History of Present Illness: Nurses Notes, Medications, Allergies Allergies: Coded Allergies: NO KNOWN ALLERGIES (Unverified , 06/12/18) Home Meds Active Scripts Hydrocodone-Acetaminophen (Hydrocodone Bitartrate/AC 5-325 mg) 1 Tab Tab, 1 TAB PO QIDP, #20 TAB Prov:FLACA CROSS MD 11/21/24 Clindamycin Hcl (Clindamycin Hcl) 300 Mg Cap, 1 CAP PO TID PRN, #30 CAP Prov:FLACA CROSS MD 11/21/24 Clindamycin Hcl (Clindamycin Hcl) 300 Mg Cap, 1 CAP PO TID, #60 CAP Prov:BHUPINDER VEGA MD 11/04/24 Cetirizine Hcl (EQ ALLERGY RELIEF) 10 Mg Tab, 10 MG OR DAILYP PRN for 10 Days, #10 TAB 0 Refills Prov:YADIEL HOLGUIN NP 08/14/24 Calamine-Zinc Oxide (Calamine 8-8 %) 1 Radha Radha, 1 APPLIC EX QID for 14 Days, #1 BOTTLE 0 Refills Prov:YADIEL HOLGUIN NP 08/14/24 Hydrocortisone (Topical) (Hydrocortisone) 2.5 % Lot, 1 APPLIC TOP BID for 7 Days, #60 ML 1 Refill Prov:YADIEL HOLGUIN NP 08/14/24 Acetaminophen (Tylenol 8 Hour Arthritis) 650 Mg Tab, 650 MG PO TID, #30 TAB Prov:WARD HINTON 07/29/24 Clindamycin Hcl (Clindamycin Hcl) 300 Mg Cap, 1 CAP PO TID, #30 CAP Prov:WARD HINTON 07/29/24 Polyethylene Glycol 3350 (Miralax) 17 Gm Pow, 17 GM PO TID for 10 Days, #30 POW Prov:JERO MATT DO 07/11/23 Reported Medications Naproxen (NAPROSYN TABLET) 500 Mg Tb, 1 TAB PO BID 02/15/24 Benazepril & Hydrochlorothiazi (Benazepril Hydrochloride/ 20-12.5 mg) 1 Tab Tab, 1 TAB PO DAILYPRN 10/18/21 Atorvastatin Calcium (ATORVASTATIN CALCIUM) 20 Mg Tab, 1 TAB PO DAILYPRN 10/18/21 Finasteride (Finasteride) 5 Mg Tab, 1 TAB PO DAILYPRN 10/18/21 Tamsulosin Hcl (Tamsulosin Hcl) 0.4 Mg Cap, 1 CAP PO DAILYPRN 10/18/21 Information Source: Patient Mode of Arrival: Ambulatory Severity: Severe Timing: Months Duration: Since onset Prehospital treatment: None Location: Arm, Back Mechanism: Spontaneous Onset Developed: Rash Object: None Condition of Object: None Retained Foreign Body: No Wound Type: None Immunization Status of Animal: NA Tetanus: Unknown History of: None Past Medical History PAST MEDICAL HISTORY: High Lipids, HTN, Hypotension, UTI'S Past Medical History (Other): Patient has a history of significant eczema Surgical History: Denies all surgeries Family History Family History: Reviewed,noncontributory to illness Social History Smoker: Cigar Alcohol: Occasionally Drugs: Denies Drug Use Lives In: Home Constitutional: denies: chills, diaphoresis, fatigue, fever, malaise, sweats, weakness, others EENTM: denies: blurred vision, double vision, ear bleeding, ear discharge, ear drainage, ear pain, ear ringing, eye pain, eye redness, hearing loss, mouth pain, mouth swelling, nasal discharge, nose bleeding, nose congestion, nose pain, photophobia, tearing, throat pain, throat swelling, voice changes, others Respiratory: denies: cough, hemoptysis, orthopnea, SOB at rest, shortness of breath, SOB with excertion, stridor, wheezing, others Cardiovascular: denies: chest pain, dizzy spells, diaphoresis, Dyspnea on exertion, edema, irregular heart beat, left arm pain, lightheadedness, palpitations, PND, syncope, others Gastrointestinal: denies: abdomen distended, abdominal pain, blood streaked bowels, constipated, diarrhea, dysphagia, difficulty swallowing, hematemesis, melena, nausea, poor appetite, poor fluid intake, rectal bleeding, rectal pain, vomiting, others Genitourinary: denies: burning, dysuria, flank pain, frequency, hematuria, incontinence, penile discharge, penile sore, pain, testicle pain, testicle swelling, urgency, others Neurological: denies: dizziness, fainting, headache, left sided numbness, left sided weakness, numbness, paresthesia, pre-existing deficit, right sided numbness, right sided weakness, seizure, speech problems, tingling, tremors, weakness, others Musculoskeletal: denies: back pain, gout, joint pain, joint swelling, muscle pain, muscle stiffness, neck pain, others Integumetry: reports: rash (Significant eczematous rash to bilateral arms, chest, back and waist.); denies: bruises, change in color, change in hair/nails, dryness, laceration, lesions, lumps, wounds, others Allergic/Immunocompromised: reports: Itching; denies: Difficulty Healing, Frequent Infections, Hives, others Hematologic/Lymphatic: denies: anemia, blood clots, easy bleeding, easy bruising, swollen glands, others Endocrine: denies: excessive hunger, excessive sweating, excessive thirst, excessive urination, flushing, intolerance to cold, intolerance to heat, unexplained weight gain, unexplained weight loss, others Psychiatric: denies: anxiety, bipolar disorder, depression, hopeless, panic disorder, schizophrenia, sleepless, suicidal, others All Other Systems: Reviewed and Negative Physical Exam General Appearance: Moderate Distress (Moderate distress due to pruritus and rash discomfort.), Normal HEENT: Normal ENT Inspection, Pharynx Normal, TMs Normal Neck: Full Range of Motion, Non-Tender, Normal, Normal Inspection Respiratory: Chest Non-Tender, Lungs Clear, No Accessory Muscle Use, No Respiratory Distress, Normal Breath Sounds Cardiovascular: No Edema, No JVD, No Murmur, No Gallop, Normal Peripheral Pulses, Regular Rate/Rhythm Breast Exam: Deferred Gastrointestinal: No Organomegaly, Non Tender, No Pulsatile Mass, Normal Bowel Sounds, Soft Genitalia: Deferred Pelvic: Deferred Rectal: Deferred Extremities: No calf tenderness, Normal capillary refill, Normal inspection, Normal range of motion, Non-tender, No pedal edema Neurologic: Alert, No Motor Deficits, Normal Affect, Normal Mood, No Sensory Deficits Cerebellar Function: Normal Reflexes: Normal Skin: Other (This patient has a significant exit sciatic rash to the bilateral arms, chest, back and waistline. Patient has a areas of lichenification that confirmed this rash is far older that one month. No definitive signs of infection. Daughter) Lymphatic: No Adenopathy Was a procedure done? Was a procedure done?: No Differential Diagnosis (INTG) Differential Diagnosis: Other (Asthmatic rash) X-Ray, Labs, Meds, VS Vital Signs Date Time Temp Pulse Resp B/P (MAP) Pulse Ox O2 Delivery O2 Flow Rate FiO2 11/24/24 16:02 97.8 78 18 128/67 (87) 97 97.8 11/24/24 16:02 78 18 97 Room Air 11/24/24 15:33 99.6 86 20 161/87 (111) 97 Current Medications Medications (Trade) Dose Ordered Sig/Pamela Route Start Time Stop Time Status Last Admin Dexamethasone Sodium Phosphate (Decadron Injection) 10 mg ONCE ONCE IM 11/24/24 15:45 11/24/24 15:46 DC 11/24/24 16:04 X-Ray, Labs, Meds, VS Comment I reviewed the patient's history at our facility and he was admitted six weeks ago for same complaints. At that time, patient received IV antibiotics and was discharged after three days of treatment by Dr. Ramses burden. Due to the patient's age and possible language barriers due to his Palestinian-speaking only status, I ascertained a consultation from our social service department to aid him in securing a primary care evaluation as this patient really needs to be under the management of a cook frozen dessert for long-term care. Patient will be sent home with some topical medication to and oral anti-itch medication. Time of 1ST Reevaluation: 16:57 Reevaluation 1ST: Unchanged Consultation: PCP, Other (Dermatology) Patient Education/Counseling: Diagnosis, Treatment Family Education/Counseling: Diagnosis, Treatment, No Family Present Departure 1 Departure Time of Disposition: 16:58 Impression: Primary Impression: Exacerbation of eczema Disposition: 01 HOME / SELF CARE / HOMELESS Condition: Stable Additional Instructions: Patient needs to maintain appointment with primary care provider as a derm atology consult and evaluation is required to secure remedy of this advanced asthmatic concern. Advise utilizing medication as needed for symptomatic relief as well as directed. e-Prescriptions Hydroxyzine HCl (Hydroxyzine Hydrochloride) 25 Mg Tab 25 MG PO Q8HP PRN, #20 TAB Prov: ALEXSANDER BEAVER PAC 11/24/24 Clobetasol Propionate (Clobetasol Propionate) 0.05 % Cre 1 APPLIC TOP BID, #60 GRAMS 0 Refills Prov: ALEXSANDER BEAVER PAC 11/24/24 Discharged With: Self, Friend Critical Care Note Critical Care Time?: No Stability Stability form required: No Heart Score Heart Score: Heart Score Response (Comments) Value History N/A 0 EKG N/A 0 Age N/A 0 Risk Factors N/A 0 Troponin N/A 0 Total 0 I personally scribed for ALEXSANDER BEAVER PAC ([email or web address]) on 11/24/24 at 15:40. Electronically submitted by Villa Marie ([email or web address]). ALEXSANDER BEAVER PAC Nov 24, 2024 15:40
[2024-11-24 16:02] VITALS: BP 128/67; PULSE 78; RESP 18; TEMP 97.8; O2SAT 97
[2024-11-24] MEDS: DexAMETHasone SOD PHOS 10MG/1ML VIAL INJ IM ONE (16:04)
[2024-11-24] MEDS ORDERED: CLOB0.055 TOP (17:00)
[2024-11-24] MEDS ORDERED: HYDR-4924 PO (17:00)
== END 2024-11-24 18:04 | disposition home or self-care (01) ==
LOC: ER 15:19
DX: L30.9 Dermatitis, unspecified (principal); I10 Essential (primary) hypertension; E78.5 Hyperlipidemia, unspecified; I95.9 Hypotension, unspecified; F17.290 Nicotine dependence, other tobacco product, uncomplicated; Z87.440 Personal history of urinary (tract) infections
CPT/HCPCS: 96372; 99283; J1100